=== PATIENT | female | born 1960 | race African-American/Black ===

== ENCOUNTER 2018-10-02 12:38 | Inpatient (IN) | payer MEDICARE, MEDICAID ==
[2018-10-02] VITALS (25 sets, daily range): BP systolic 77–156; BP diastolic 27–128
[~2018-10-02] VITALS: Ht 152.4 cm; Wt 110.2 kg
[2018-10-02] MEDS ORDERED: SODIUM CHLORIDE 0.9% 1,000 ML IV ONE (13:00)
[2018-10-02] MEDS ORDERED: FAMOTIDINE 20MG/2ML VIAL IV STA (13:00)
[2018-10-02] MEDS ORDERED: ONDANSETRON HCL 4MG/2ML INJ IV ONE (13:45)
[2018-10-02] MEDS ORDERED: SODIUM CHLORIDE 0.9% 1000ML BAG (SEPSIS BOLUS) IV ONE (13:45)
[2018-10-02 14:22] LABS: BASOPHILS % 0.5 % (0.0-2.0); EOSINOPHILS % 0.1 % (0.0-5.0); HEMATOCRIT. 31.5 % (36.0-48.0); HEMOGLOBIN. 9.9 g/dL (12.0-16.0); MEAN CORPUSCULAR HEMOGLOBIN 33.5 pg (28.0-32.0); MONOCYTES % 6.4 % (2.0-8.0); PLATELET 372 x1000/uL (130-400); RED BLOOD CELL COUNT 2.94 mill/uL (4.2-5.4); RED CELL DISTRIBUTION WIDTH 14.8 % (11.6-14.6)
[2018-10-02] MEDS ORDERED: LIDOCAINE HCL/PF 1% 2ML VIAL ONE ×2 (14:27→15:48)
[2018-10-02 14:28] LABS: CHLORIDE 119 mEq/L (98-107)
[2018-10-02 14:29] LABS: INR 1.3; PROTHROMBIN TIME 13.2 sec (9.1-11.1)
[2018-10-02] MEDS ORDERED: NOREPINEPHRINE 4 MG in DEXT 5% WATER 246 ML IV ONE ×2 (14:30→16:30)
[2018-10-02 14:32] LABS: ETHANOL BLOOD < 10 mg/dL
[2018-10-02] MEDS ORDERED: LEVOFLOXACIN 500MG PREMIX 100 ML IV ONE (14:45)
[2018-10-02] MEDS ORDERED: PIPERACILLIN/TAZ 3.375G PREMIX 50 ML IV ONE (14:45)
[2018-10-02] MEDS ORDERED: NOREPINEPHRINE 4MG/250ML PMX 250 ML IV PRN (15:30)
[2018-10-02] MEDS ORDERED: SODIUM BICARBONATE 8.4% 1 MEQ/ML 50ML SYR IV ONE (15:45)
[2018-10-02] MEDS ORDERED: KCL 20MEQ/100ML PREMIX 100 ML IV ONE (15:45)
[2018-10-02] MEDS ORDERED: MORPHINE SULFATE 10 MG/ML CPJ IV PRN (16:15)
[2018-10-02] MEDS ORDERED: MAGNESIUM 1 G PREMIX 100 ML IV ONE ×2 (16:15)
[2018-10-02] MEDS ORDERED: NITROGLYCERIN 0.4MG TABLET SL SL PRN (16:15)
[2018-10-02] MEDS ORDERED: IPRATROPIUM/ALBUTEROL 0.5-3(2.5)MG/3ML NEB INH PRN (16:30)
[2018-10-02] MEDS ORDERED: GUAIFENESIN 200MG/10ML SUGAR FREE UDC PO PRN (16:30)
[2018-10-02] MEDS ORDERED: DOCUSATE SODIUM 100MG CAPSULE PO PRN (16:30)
[2018-10-02] MEDS ORDERED: DEXTROSE 50% WATER 50ML SYRINGE IV PRN (16:30)
[2018-10-02] MEDS ORDERED: ONDANSETRON HCL 4MG/2ML INJ IV PRN (16:30)
[2018-10-02] MEDS ORDERED: MAGNESIUM/ALUMINUM HYDROXIDE/SIMETHICONE 30ML UDC PO PRN (16:30)
[2018-10-02] MEDS ORDERED: MVI, ADULT NO.1 10 ML, FOLIC ACID 1 MG, THIAMINE HCL 100 MG in SODIUM CHLORIDE 0.9% 1,0... IV SCH ×4 (17:00)
[2018-10-02 17:02] LABS: FOLIC ACID (FOLATE) SERUM 9.6 ng/mL (>5.38)
[2018-10-02 17:07] LABS: CLARITY URINE CLOUDY (CLEAR); COLOR URINE DARK YELLOW (YELLOW); KETONES URINE TRACE (NEGATIVE); LEUKOCYTE ESTERASE URINE 1+ (NEGATIVE); NITRITE URINE NEGATIVE (NEGATIVE); OCCULT BLOOD URINE 2+ (NEGATIVE); PROTEIN URINE 2+ (NEGATIVE); SPECIFIC GRAVITY URINE 1.022 (1.005-1.030); UROBILINOGEN URINE 0.2 E.U./dL (0.2-1.0)
[2018-10-02 17:16] LABS: *BARBITURATES SCREEN URINE NEGATIVE (NEGATIVE); *BENZODIAZEPINES SCREEN URINE NEGATIVE (NEGATIVE); *COCAINE SCREEN URINE NEGATIVE (NEGATIVE); METHADONE URINE SCREEN NEGATIVE (NEGATIVE); OPIATES URINE SCREEN NEGATIVE (NEGATIVE)
[2018-10-02 17:17] LABS: *AMPHETAMINES SCREEN URINE NEGATIVE (NEGATIVE); CANNABINOID URINE SCREEN NEGATIVE (NEGATIVE); PHENCYCLIDINE URINE SCREEN NEGATIVE (NEGATIVE)
[2018-10-02] MEDS ORDERED: POTASSIUM CHLORIDE 20MEQ TABLET SR PO NR (18:00)
[2018-10-02] MEDS ORDERED: SODIUM BICARBONATE 8.4% 1 MEQ/ML 50ML SYR IV NR (18:00)
[2018-10-02] MEDS: BLOOD SUGAR DIAGNOSTIC STRIP TEST SCH ×2 (18:19→20:52)
[2018-10-02 18:28] LABS: BG CARBOXYHEMOGLOBIN 0.3 % (0.5-1.5); BG DEOXYHEMOGLOBIN 2.2 % (0.0-5.0); BG HCO3 ACT 9.1 mmol/L (22.0-26.0); BG METHEMOGLOBIN 0.5 % (0.0-1.5); BG OXYGEN SATURATION 97.8 % (92.0-98.5); BG PCO2 20.4 mmHg (35.0-45.0); BG PH 7.266 (7.350-7.450); BG PO2 109.9 mmHg (75.0-100.0); BG SAMPLE SITE RIGHT RADIAL; BG VENT MODE ROOM AIR
[2018-10-02] MEDS ORDERED: KCL 20MEQ/100ML PREMIX 100 ML IV SCH (18:30)
[2018-10-02] MEDS ORDERED: DEXT 5%/0.45% NACL 1000ML 1,000 ML IV SCH (18:30)
[2018-10-02] MEDS: INSULIN LISPRO 100 UNITS/ML SUBCUT SCH ×2 (18:36→20:53)
[2018-10-02] MEDS: NOREPINEPHRINE 4 MG in DEXT 5% WATER 246 ML IV PRN ×2 (19:42→22:42)
[2018-10-02] MEDS ORDERED: CEFTRIAXONE 1 G PREMIX 50 ML IV SCH (20:00)
[2018-10-02] MEDS: ASCORBIC ACID 500 MG TABLET PO SCH (20:52)
[2018-10-02] MEDS: CITRIC ACID/SODIUM CITRATE SOLN 30ML UDC PO SCH (20:52)
[2018-10-02] MEDS: ZOLPIDEM TARTRATE 5MG TABLET PO PRN (21:59)
[2018-10-02] MEDS: SODIUM BICARBONATE 100 MEQ in DEXTROSE 5% WATER 900 ML IV SCH (22:42)
[2018-10-03] VITALS (100 sets, daily range): BP systolic 50–150; BP diastolic 23–121
[2018-10-03] MEDS ORDERED: PANT40TA4 MT (00:24)
[2018-10-03] MEDS ORDERED: ASPI-1158 MT (00:24)
[2018-10-03] MEDS ORDERED: IBUP-2030 PO (00:25)
[2018-10-03] MEDS ORDERED: EMPA1TAB24 PO (00:25)
[2018-10-03] MEDS ORDERED: ATOR40TA70 MT (00:25)
[2018-10-03] MEDS ORDERED: LOSA1TAB34 MT (00:25)
[2018-10-03] MEDS: NOREPINEPHRINE 16 MG in DEXT 5% WATER 484 ML IV PRN ×2 (03:15→15:55)
[2018-10-03 05:18] LABS: BASOPHILS % 1.6 % (0.0-2.0); EOSINOPHILS % 0.4 % (0.0-5.0); HEMOGLOBIN. 9.4 g/dL (12.0-16.0); LYMPHOCYTES % 28.3 % (20.0-50.0); MEAN CORPUSCULAR HEMOGLOBIN 33.3 pg (28.0-32.0); NEUTROPHILS % 59.7 % (40.0-76.0); PLATELET 374 x1000/uL (130-400); RED BLOOD CELL COUNT 2.82 mill/uL (4.2-5.4); RED CELL DISTRIBUTION WIDTH 14.5 % (11.6-14.6)
[2018-10-03 05:31] LABS: PHOSPHORUS 2.3 mg/dL (2.5-4.9)
[2018-10-03] MEDS ORDERED: KCL 20MEQ/100ML PREMIX 100 ML IV ONE ×2 (07:00)
[2018-10-03] MEDS: BLOOD SUGAR DIAGNOSTIC STRIP TEST SCH ×4 (07:50→21:27)
[2018-10-03] MEDS ORDERED: POTASSIUM CHLORIDE INJ 40 MEQ in DEXT 5% WATER 250 ML IV NR (08:00)
[2018-10-03] MEDS ORDERED: MAGNESIUM 4 G PREMIX 100 ML IV NR (08:30)
[2018-10-03] MEDS: ZINC SULFATE 220 MG ( 50 ) CAPSULE PO SCH (08:38)
[2018-10-03] MEDS: ASCORBIC ACID 500 MG TABLET PO SCH ×2 (08:38→21:09)
[2018-10-03] MEDS: CITRIC ACID/SODIUM CITRATE SOLN 30ML UDC PO SCH ×3 (08:38→18:20)
[2018-10-03] MEDS: PANTOPRAZOLE SODIUM 40 MG/VIAL IV SCH (08:38)
[2018-10-03] MEDS: INSULIN LISPRO 100 UNITS/ML SUBCUT SCH ×4 (08:40→21:34)
[2018-10-03] MEDS ORDERED: POTASSIUM PHOS,M-BASIC-D-BASIC 30 MMOL in DEXT 5% WATER 500 ML IV ONE (09:00)
[2018-10-03 12:19] LABS: KETONES URINE NEGATIVE (NEGATIVE); LEUKOCYTE ESTERASE URINE 1+ (NEGATIVE); NITRITE URINE NEGATIVE (NEGATIVE); OCCULT BLOOD URINE 3+ (NEGATIVE); PROTEIN URINE 1+ (NEGATIVE); UROBILINOGEN URINE 0.2 E.U./dL (0.2-1.0)
[2018-10-03 12:24] LABS: CLARITY URINE CLOUDY (CLEAR); COLOR URINE BLOODY (YELLOW)
[2018-10-03] MEDS: SODIUM BICARBONATE 100 MEQ in DEXTROSE 5% WATER 900 ML IV SCH ×2 (13:33→21:02)
[2018-10-03] MEDS: POTASSIUM CHLORIDE 20MEQ TABLET SR PO NR ×2 (13:37→14:24)
[2018-10-03] MEDS ORDERED: POTASSIUM CHLORIDE 20MEQ/PACKET PO NR (14:30)
[2018-10-03] MEDS ORDERED: POTASSIUM CHLORIDE 20MEQ/PACKET PO ONE ×2 (19:15→21:30)
[2018-10-03] MEDS: CEFTRIAXONE 1 G PREMIX 50 ML IV SCH (19:29)
[2018-10-03] MEDS ORDERED: KCL 20MEQ/100ML PREMIX 100 ML IV NR (20:30)
[2018-10-03] MEDS ORDERED: POTASSIUM CHLORIDE INJ 40 MEQ in DEXT 5% WATER 250 ML IV ONE (21:00)
[2018-10-03] MEDS: TRAMADOL 50MG TABLET PO PRN (21:10)
[2018-10-04] VITALS (98 sets, daily range): BP systolic 50–147; BP diastolic 24–108
[2018-10-04] MEDS: ZOLPIDEM TARTRATE 5MG TABLET PO PRN (01:36)
[2018-10-04] MEDS: NOREPINEPHRINE 16 MG in DEXT 5% WATER 484 ML IV PRN (03:47)
[2018-10-04 05:26] LABS: BASOPHILS % 0.7 % (0.0-2.0); EOSINOPHILS % 0.7 % (0.0-5.0); HEMATOCRIT. 31.3 % (36.0-48.0); HEMOGLOBIN. 10.1 g/dL (12.0-16.0); LYMPHOCYTES % 27.3 % (20.0-50.0); MEAN CORPUSCULAR VOLUME 102.9 fL (81.0-99.0); MEAN PLATELET VOLUME 10.2 fl (7.4-10.4); MONOCYTES % 8.5 % (2.0-8.0); NEUTROPHILS % 62.8 % (40.0-76.0); PLATELET 307 x1000/uL (130-400); RED BLOOD CELL COUNT 3.04 mill/uL (4.2-5.4); RED CELL DISTRIBUTION WIDTH 14.5 % (11.6-14.6)
[2018-10-04 05:33] LABS: CHLORIDE 105 mEq/L (98-107)
[2018-10-04 05:46] LABS: CREATINE KINASE 51 IU/L (26-192); PHOSPHORUS 1.9 mg/dL (2.5-4.9)
[2018-10-04] MEDS: BLOOD SUGAR DIAGNOSTIC STRIP TEST SCH ×4 (07:54→20:50)
[2018-10-04] MEDS: ASCORBIC ACID 500 MG TABLET PO SCH ×2 (08:13→20:03)
[2018-10-04] MEDS: PANTOPRAZOLE SODIUM 40 MG/VIAL IV SCH (08:13)
[2018-10-04] MEDS: ZINC SULFATE 220 MG ( 50 ) CAPSULE PO SCH (08:13)
[2018-10-04] MEDS: POTASSIUM CHLORIDE 20MEQ/PACKET PO SCH (08:13)
[2018-10-04] MEDS: INSULIN LISPRO 100 UNITS/ML SUBCUT SCH ×4 (08:14→20:50)
[2018-10-04] MEDS ORDERED: POTASSIUM CHLORIDE 20MEQ TABLET SR PO SCH (09:00)
[2018-10-04] MEDS: TRAMADOL 50MG TABLET PO PRN (09:17)
[2018-10-04] MEDS: SODIUM BICARBONATE 100 MEQ in DEXTROSE 5% WATER 900 ML IV SCH ×2 (09:17→17:52)
[2018-10-04] MEDS ORDERED: SODIUM PHOS,M-BASIC-D-BASIC 20 MM in DEXT 5% WATER 243.3333 ML IV SCH (11:00)
[2018-10-04] MEDS: ACETAMINOPHEN 325MG TABLET PO PRN ×2 (11:02→17:51)
[2018-10-04] MEDS: INSULIN GLARGINE UD 100 UNITS/ML SYR SUBCUT SCH (12:35)
[2018-10-04] MEDS ORDERED: LEVOFLOXACIN 250MG PREMIX 50 ML IV SCH ×2 (15:00→16:00)
[2018-10-04] MEDS: NOREPINEPHRINE 8 MG in DEXT 5% WATER 242 ML IV PRN (17:51)
[2018-10-04] MEDS: CEFTRIAXONE 1 G PREMIX 50 ML IV SCH (19:58)
[2018-10-04] MEDS: DIPHENHYDRAMINE 50MG/ML VIAL IV PRN (20:03)
[2018-10-05] VITALS (90 sets, daily range): BP systolic 48–139; BP diastolic 17–115
[2018-10-05] MEDS: ZOLPIDEM TARTRATE 5MG TABLET PO PRN ×2 (00:20→21:02)
[2018-10-05] MEDS: TRAMADOL 50MG TABLET PO PRN ×2 (04:48→14:25)
[2018-10-05 05:45] LABS: BASOPHILS % 0.2 % (0.0-2.0); EOSINOPHILS % 1.6 % (0.0-5.0); HEMOGLOBIN. 9.4 g/dL (12.0-16.0); LYMPHOCYTES % 28.5 % (20.0-50.0); MEAN CORPUSCULAR HEMOGLOBIN 33.1 pg (28.0-32.0); MEAN CORPUSCULAR VOLUME 102.6 fL (81.0-99.0); MEAN PLATELET VOLUME 10.5 fl (7.4-10.4); MONOCYTES % 8.5 % (2.0-8.0); NEUTROPHILS % 61.2 % (40.0-76.0); PLATELET 237 x1000/uL (130-400); RED BLOOD CELL COUNT 2.82 mill/uL (4.2-5.4); RED CELL DISTRIBUTION WIDTH 14.5 % (11.6-14.6)
[2018-10-05 05:58] LABS: CHLORIDE 101 mEq/L (98-107)
[2018-10-05 06:11] LABS: PHOSPHORUS 2.6 mg/dL (2.5-4.9)
[2018-10-05] MEDS: SODIUM BICARBONATE 100 MEQ in DEXTROSE 5% WATER 900 ML IV SCH (06:40)
[2018-10-05] MEDS: BLOOD SUGAR DIAGNOSTIC STRIP TEST SCH ×4 (08:11→21:02)
[2018-10-05] MEDS: PANTOPRAZOLE SODIUM 40 MG/VIAL IV SCH (08:28)
[2018-10-05] MEDS: POTASSIUM CHLORIDE 20MEQ/PACKET PO SCH (08:28)
[2018-10-05] MEDS: ASCORBIC ACID 500 MG TABLET PO SCH ×2 (08:28→21:02)
[2018-10-05] MEDS: INSULIN LISPRO 100 UNITS/ML SUBCUT SCH ×4 (08:29→21:00)
[2018-10-05] MEDS: ZINC SULFATE 220 MG ( 50 ) CAPSULE PO SCH (08:29)
[2018-10-05] MEDS ORDERED: MEDICATION NOT ON FORMULARY EA XX SCH (08:30)
[2018-10-05] MEDS ORDERED: MAGNESIUM 2 G PREMIX 50 ML IV SCH (09:00)
[2018-10-05] MEDS: POTASSIUM CHLORIDE IV SCH (09:53)
[2018-10-05] MEDS: SODIUM CHLORIDE 0.9% IV SCH (09:53)
[2018-10-05] MEDS: INSULIN GLARGINE UD 100 UNITS/ML SYR SUBCUT SCH (09:54)
[2018-10-05] MEDS: NOREPINEPHRINE 8 MG in DEXT 5% WATER 242 ML IV PRN (10:05)
[2018-10-05] MEDS: DIPHENHYDRAMINE 50MG/ML VIAL IV PRN ×3 (10:13→21:02)
[2018-10-05] MEDS ORDERED: SODIUM CHLORIDE 0.9% 1,000 ML IV SCH ×2 (11:35→11:45)
[2018-10-05] MEDS: ALBUMIN HUMAN 25GM/100ML (25%) IV SCH ×2 (12:20→21:39)
[2018-10-05] MEDS: LEVOFLOXACIN 250MG PREMIX 50 ML IV SCH (15:43)
[2018-10-05] MEDS: CEFTRIAXONE 1 G PREMIX 50 ML IV SCH (20:32)
[2018-10-06] VITALS (103 sets, daily range): BP systolic 57–144; BP diastolic 22–94
[2018-10-06] MEDS: POTASSIUM CHLORIDE IV SCH ×2 (00:30→14:15)
[2018-10-06] MEDS: SODIUM CHLORIDE 0.9% IV SCH ×2 (00:30→14:15)
[2018-10-06 05:35] LABS: BASOPHILS % 0.4 % (0.0-2.0); EOSINOPHILS % 1.5 % (0.0-5.0); HEMATOCRIT. 26.4 % (36.0-48.0); HEMOGLOBIN. 8.5 g/dL (12.0-16.0); LYMPHOCYTES % 24.5 % (20.0-50.0); MEAN CORPUSCULAR VOLUME 102.8 fL (81.0-99.0); MEAN PLATELET VOLUME 10.8 fl (7.4-10.4); MONOCYTES % 7.4 % (2.0-8.0); NEUTROPHILS % 66.2 % (40.0-76.0); PLATELET 196 x1000/uL (130-400); RED BLOOD CELL COUNT 2.57 mill/uL (4.2-5.4); RED CELL DISTRIBUTION WIDTH 14.4 % (11.6-14.6)
[2018-10-06] MEDS: ALBUMIN HUMAN 25GM/100ML (25%) IV SCH (05:35)
[2018-10-06 05:40] LABS: CHLORIDE 108 mEq/L (98-107)
[2018-10-06 05:47] LABS: PHOSPHORUS 2.2 mg/dL (2.5-4.9)
[2018-10-06] MEDS: BLOOD SUGAR DIAGNOSTIC STRIP TEST SCH ×4 (08:44→20:20)
[2018-10-06] MEDS: PANTOPRAZOLE SODIUM 40 MG/VIAL IV SCH (09:06)
[2018-10-06] MEDS: ASCORBIC ACID 500 MG TABLET PO SCH ×2 (09:06→20:00)
[2018-10-06] MEDS: ZINC SULFATE 220 MG ( 50 ) CAPSULE PO SCH (09:06)
[2018-10-06] MEDS: POTASSIUM CHLORIDE 20MEQ/PACKET PO SCH (09:06)
[2018-10-06 09:07] LABS: A/G RATIO 0.6 (0.7-1.7); ALBUMIN 2.3 g/dL (2.9-4.4); ALPHA-1-GLOBULIN 0.3 g/dL (0.0-0.4); ALPHA-2-GLOBULIN 0.7 g/dL (0.4-1.0); BETA GLOBULIN 1.2 g/dL (0.7-1.3); GAMMA GLOBULINS 1.5 g/dL (0.4-1.8); GLOBULIN TOTAL 3.7 g/dL (2.2-3.9); M-SPIKE Not Observed g/dL (Not Observed)
[2018-10-06] MEDS: INSULIN LISPRO 100 UNITS/ML SUBCUT SCH ×4 (09:07→20:20)
[2018-10-06] MEDS: INSULIN GLARGINE UD 100 UNITS/ML SYR SUBCUT SCH (09:08)
[2018-10-06] MEDS: TRAMADOL 50MG TABLET PO PRN (09:20)
[2018-10-06] MEDS: POTASSIUM-SODIUM PHOSPHATE POWDER PACKET PO SCH ×2 (09:21→15:43)
[2018-10-06] MEDS ORDERED: MAGNESIUM 2 G PREMIX 50 ML IV SCH (11:00)
[2018-10-06] MEDS: HYDROCORTISONE SOD SUCCINATE 100 MG/2 ML VIAL IV SCH ×2 (14:14→20:00)
[2018-10-06] MEDS: NOREPINEPHRINE 8 MG in DEXT 5% WATER 242 ML IV PRN (14:15)
[2018-10-06] MEDS: DIPHENHYDRAMINE 50MG/ML VIAL IV PRN (14:28)
[2018-10-06] MEDS: LEVOFLOXACIN 250MG PREMIX 50 ML IV SCH (15:43)
[2018-10-06] MEDS: CEFTRIAXONE 1 G PREMIX 50 ML IV SCH (20:00)
[2018-10-07] VITALS (98 sets, daily range): BP systolic 49–188; BP diastolic 21–105
[2018-10-07] MEDS: DIPHENHYDRAMINE 50MG/ML VIAL IV PRN (03:45)
[2018-10-07] MEDS: SODIUM CHLORIDE 0.9% IV SCH (03:52)
[2018-10-07] MEDS: POTASSIUM CHLORIDE IV SCH (03:52)
[2018-10-07 05:55] LABS: CHLORIDE 113 mEq/L (98-107)
[2018-10-07 06:02] LABS: BASOPHILS % 0.1 % (0.0-2.0); HEMATOCRIT. 26.2 % (36.0-48.0); HEMOGLOBIN. 8.2 g/dL (12.0-16.0); MEAN CORPUSCULAR HEMOGLOBIN 32.8 pg (28.0-32.0); MEAN CORPUSCULAR VOLUME 104.3 fL (81.0-99.0); MEAN PLATELET VOLUME 10.9 fl (7.4-10.4); MONOCYTES % 2.7 % (2.0-8.0); NEUTROPHILS % 78.2 % (40.0-76.0); PLATELET 193 x1000/uL (130-400); RED BLOOD CELL COUNT 2.51 mill/uL (4.2-5.4); RED CELL DISTRIBUTION WIDTH 14.4 % (11.6-14.6)
[2018-10-07 06:08] LABS: PHOSPHORUS 1.9 mg/dL (2.5-4.9)
[2018-10-07] MEDS: HYDROCORTISONE SOD SUCCINATE 100 MG/2 ML VIAL IV SCH ×3 (07:02→20:20)
[2018-10-07] MEDS: BLOOD SUGAR DIAGNOSTIC STRIP TEST SCH ×4 (07:50→20:42)
[2018-10-07 09:10] LABS: COMPLEMENT C3 135 mg/dL (82-167)
[2018-10-07] MEDS: PANTOPRAZOLE SODIUM 40 MG/VIAL IV SCH (09:25)
[2018-10-07] MEDS: POTASSIUM-SODIUM PHOSPHATE POWDER PACKET PO SCH ×2 (09:25→17:00)
[2018-10-07] MEDS: ZINC SULFATE 220 MG ( 50 ) CAPSULE PO SCH (09:25)
[2018-10-07] MEDS: ASCORBIC ACID 500 MG TABLET PO SCH ×2 (09:25→20:20)
[2018-10-07] MEDS: INSULIN LISPRO 100 UNITS/ML SUBCUT SCH ×4 (09:26→21:01)
[2018-10-07] MEDS ORDERED: MAGNESIUM 4 G PREMIX 100 ML IV NR (10:30)
[2018-10-07] MEDS: SODIUM CHLORIDE 0.45% 1,000 ML IV SCH (10:47)
[2018-10-07] MEDS: POTASSIUM CHLORIDE 20MEQ/PACKET PO SCH (10:47)
[2018-10-07] MEDS: INSULIN GLARGINE UD 100 UNITS/ML SYR SUBCUT SCH (10:48)
[2018-10-07] MEDS: TRAMADOL 50MG TABLET PO PRN (11:44)
[2018-10-07] MEDS ORDERED: SODIUM PHOS,M-BASIC-D-BASIC 20 MM in DEXT 5% WATER 243.3333 ML IV NR (12:00)
[2018-10-07 13:06] LABS: ANTI-MYELOPEROXIDASE AB < 9.0 U/mL (0.0-9.0); ANTI-PROTEINASE 3 ABS < 3.5 U/mL (0.0-3.5)
[2018-10-07] MEDS: LEVOFLOXACIN 250MG PREMIX 50 ML IV SCH (17:55)
[2018-10-07] MEDS: CEFTRIAXONE 1 G PREMIX 50 ML IV SCH (20:20)
[2018-10-08] VITALS (62 sets, daily range): BP systolic 66–154; BP diastolic 37–89
[2018-10-08] MEDS: DIPHENHYDRAMINE 50MG/ML VIAL IV PRN (02:55)
[2018-10-08] MEDS: HYDROCORTISONE SOD SUCCINATE 100 MG/2 ML VIAL IV SCH ×3 (05:10→22:25)
[2018-10-08 05:40] LABS: BASOPHILS % 0.3 % (0.0-2.0); HEMATOCRIT. 25.6 % (36.0-48.0); HEMOGLOBIN. 8.1 g/dL (12.0-16.0); LYMPHOCYTES % 16.5 % (20.0-50.0); MEAN CORPUSCULAR VOLUME 106.5 fL (81.0-99.0); MEAN PLATELET VOLUME 10.9 fl (7.4-10.4); MONOCYTES % 3.3 % (2.0-8.0); NEUTROPHILS % 79.9 % (40.0-76.0); PLATELET 216 x1000/uL (130-400); RED CELL DISTRIBUTION WIDTH 14.6 % (11.6-14.6)
[2018-10-08] MEDS: BLOOD SUGAR DIAGNOSTIC STRIP TEST SCH ×4 (08:45→21:00)
[2018-10-08] MEDS: ZINC SULFATE 220 MG ( 50 ) CAPSULE PO SCH (09:06)
[2018-10-08] MEDS: POTASSIUM-SODIUM PHOSPHATE POWDER PACKET PO SCH ×2 (09:06→17:55)
[2018-10-08] MEDS: PANTOPRAZOLE SODIUM 40 MG/VIAL IV SCH (09:06)
[2018-10-08 09:07] LABS: GLOMERULAR BASEMENT MEMB AB 4 units (0-20)
[2018-10-08] MEDS: ASCORBIC ACID 500 MG TABLET PO SCH ×2 (09:07→22:24)
[2018-10-08] MEDS: POTASSIUM CHLORIDE 20MEQ/PACKET PO SCH (09:07)
[2018-10-08] MEDS: SODIUM CHLORIDE 0.45% 1,000 ML IV SCH (09:08)
[2018-10-08] MEDS: INSULIN LISPRO 100 UNITS/ML SUBCUT SCH ×4 (09:08→22:25)
[2018-10-08] MEDS: INSULIN GLARGINE UD 100 UNITS/ML SYR SUBCUT SCH (09:39)
[2018-10-08] MEDS: ACETAMINOPHEN 325MG TABLET PO PRN ×2 (09:40→23:56)
[2018-10-08 11:18] LABS: CHLORIDE 111 mEq/L (98-107)
[2018-10-08 11:25] LABS: PHOSPHORUS 3.2 mg/dL (2.5-4.9)
[2018-10-08] MEDS: LEVOFLOXACIN 500MG PREMIX 100 ML IV SCH (13:19)
[2018-10-08 15:08] LABS: ATYPICAL P-ANCA <1:20 titer (Neg:<1:20); CYTOPLASMIC C-ANCA <1:20 titer (Neg:<1:20); PERINUCLEAR P-ANCA <1:20 titer (Neg:<1:20)
[2018-10-08] MEDS ORDERED: POTASSIUM CHLORIDE 20MEQ/PACKET PO SCH (19:15)
[2018-10-08] MEDS: CEFTRIAXONE 1 G PREMIX 50 ML IV SCH (20:41)
[2018-10-09] VITALS (12 sets, daily range): BP systolic 92–125; BP diastolic 53–86
[2018-10-09] MEDS: DIPHENHYDRAMINE 50MG/ML VIAL IV PRN ×2 (01:17→23:08)
[2018-10-09] MEDS: SODIUM CHLORIDE 0.45% 1,000 ML IV SCH ×3 (01:25→23:55)
[2018-10-09] MEDS: HYDROCORTISONE SOD SUCCINATE 100 MG/2 ML VIAL IV SCH ×3 (05:50→21:08)
[2018-10-09] MEDS: BLOOD SUGAR DIAGNOSTIC STRIP TEST SCH ×4 (05:51→20:20)
[2018-10-09 06:38] LABS: BASOPHILS % 0.5 % (0.0-2.0); HEMOGLOBIN. 8.2 g/dL (12.0-16.0); LYMPHOCYTES % 17.2 % (20.0-50.0); MEAN CORPUSCULAR HEMOGLOBIN 33.5 pg (28.0-32.0); MEAN CORPUSCULAR VOLUME 105.8 fL (81.0-99.0); MEAN PLATELET VOLUME 10.6 fl (7.4-10.4); MONOCYTES % 4.6 % (2.0-8.0); NEUTROPHILS % 77.7 % (40.0-76.0); PLATELET 242 x1000/uL (130-400); RED BLOOD CELL COUNT 2.46 mill/uL (4.2-5.4); RED CELL DISTRIBUTION WIDTH 14.5 % (11.6-14.6)
[2018-10-09 06:56] LABS: CHLORIDE 112 mEq/L (98-107)
[2018-10-09 07:02] LABS: PHOSPHORUS 3.6 mg/dL (2.5-4.9)
[2018-10-09] MEDS: INSULIN LISPRO 100 UNITS/ML SUBCUT SCH ×4 (07:20→20:30)
[2018-10-09] MEDS: PANTOPRAZOLE SODIUM 40 MG/VIAL IV SCH (07:43)
[2018-10-09] MEDS: POTASSIUM-SODIUM PHOSPHATE POWDER PACKET PO SCH ×2 (07:44→18:21)
[2018-10-09] MEDS: ZINC SULFATE 220 MG ( 50 ) CAPSULE PO SCH (07:44)
[2018-10-09] MEDS: ASCORBIC ACID 500 MG TABLET PO SCH ×2 (07:44→20:30)
[2018-10-09] MEDS ORDERED: NYSTATIN POWDER 15GM TOP SCH (10:45)
[2018-10-09] MEDS: HYDROCODONE/ACETAMINOPHEN 10/325MG TABLET PO PRN ×2 (11:02→18:25)
[2018-10-09] MEDS: INSULIN GLARGINE UD 100 UNITS/ML SYR SUBCUT SCH (11:06)
[2018-10-09 14:44] LABS: CLARITY URINE CLOUDY (CLEAR); COLOR URINE AMBER (YELLOW); KETONES URINE NEGATIVE (NEGATIVE); LEUKOCYTE ESTERASE URINE 1+ (NEGATIVE); NITRITE URINE NEGATIVE (NEGATIVE); OCCULT BLOOD URINE 3+ (NEGATIVE); PROTEIN URINE 2+ (NEGATIVE); SPECIFIC GRAVITY URINE 1.019 (1.005-1.030); UROBILINOGEN URINE 0.2 E.U./dL (0.2-1.0)
[2018-10-09] MEDS: LEVOFLOXACIN 500MG PREMIX 100 ML IV SCH (15:46)
[2018-10-09] MEDS: NYSTATIN POWDER 15GM TOP SCH ×2 (15:47→18:26)
[2018-10-09] MEDS ORDERED: CEFTRIAXONE 1 G PREMIX 50 ML IV SCH (20:00)
[2018-10-09] MEDS ORDERED: MAGNESIUM 2 G PREMIX 50 ML IV SCH (21:00)
[2018-10-10] VITALS (10 sets, daily range): BP systolic 95–128; BP diastolic 37–69
[2018-10-10] MEDS: HYDROCODONE/ACETAMINOPHEN 10/325MG TABLET PO PRN ×3 (00:03→15:08)
[2018-10-10] MEDS: BLOOD SUGAR DIAGNOSTIC STRIP TEST SCH ×2 (05:58→11:10)
[2018-10-10] MEDS: HYDROCORTISONE SOD SUCCINATE 100 MG/2 ML VIAL IV SCH ×2 (06:14→14:42)
[2018-10-10 06:43] LABS: HEMATOCRIT. 27.6 % (36.0-48.0); HEMOGLOBIN. 8.7 g/dL (12.0-16.0); MEAN CORPUSCULAR HEMOGLOBIN 33.1 pg (28.0-32.0); MEAN CORPUSCULAR VOLUME 105.4 fL (81.0-99.0); MEAN PLATELET VOLUME 10.3 fl (7.4-10.4); PLATELET 290 x1000/uL (130-400); RED BLOOD CELL COUNT 2.62 mill/uL (4.2-5.4); RED CELL DISTRIBUTION WIDTH 14.3 % (11.6-14.6)
[2018-10-10 07:16] LABS: PHOSPHORUS 3.8 mg/dL (2.5-4.9)
[2018-10-10] MEDS: INSULIN LISPRO 100 UNITS/ML SUBCUT SCH ×2 (07:20→12:06)
[2018-10-10] MEDS: ZINC SULFATE 220 MG ( 50 ) CAPSULE PO SCH (08:01)
[2018-10-10] MEDS: PANTOPRAZOLE SODIUM 40 MG/VIAL IV SCH (08:01)
[2018-10-10] MEDS: NYSTATIN POWDER 15GM TOP SCH (08:01)
[2018-10-10] MEDS: POTASSIUM-SODIUM PHOSPHATE POWDER PACKET PO SCH (08:01)
[2018-10-10] MEDS: ASCORBIC ACID 500 MG TABLET PO SCH (08:02)
[2018-10-10] MEDS: SODIUM CHLORIDE 0.45% 1,000 ML IV SCH ×2 (08:02→15:57)
[2018-10-10] MEDS: INSULIN GLARGINE UD 100 UNITS/ML SYR SUBCUT SCH (10:17)
[2018-10-10 10:56] LABS: PLATELET ESTIMATE NORMAL
[2018-10-10] MEDS ORDERED: NYSTATIN POWDER 15GM TOP SCH (13:00)
[2018-10-10] MEDS ORDERED: CITRIC ACID/SODIUM CITRATE SOLN 30ML UDC PO SCH (13:30)
[2018-10-10] MEDS ORDERED: LEVOFLOXACIN 250MG PREMIX 50 ML IV SCH (15:00)
== END 2018-10-10 16:59 | DRG 871 ==
LOC: ER 12:46 → CANRESERV 15:42 → ENRESERV 15:42 → EDBEDREQ 15:48 → EDBEDREQSVC 15:48 → EDBEDREQTM 15:48 → CVICU 16:09 → SUPCPDRO 16:12 → EDBEDREQTM 16:13 → EDBEDREQ 16:13 → ENRESERV 17:10 → CANRESERV 17:15 → ENRESERV 17:15 → 3WST 10-08 18:05
PROVIDERS: ADMIT Internal Medicine; ATTEND Internal Medicine
PROC: 02HV33Z Insertion of Infusion Device into Superior Vena Cava, Percutaneous Approach (ICD-10-PCS; principal; 2018-10-02)
PROC: B548ZZA Ultrasonography of Superior Vena Cava, Guidance (ICD-10-PCS; 2018-10-02)
DX: A41.9 Sepsis, unspecified organism (principal); R65.21 Severe sepsis with septic shock; E43 Unspecified severe protein-calorie malnutrition; N17.0 Acute kidney failure with tubular necrosis; I50.41 Acute combined systolic (congestive) and diastolic (congestive) heart failure; E27.40 Unspecified adrenocortical insufficiency; N39.0 Urinary tract infection, site not specified; Z68.42 Body mass index [BMI] 45.0-49.9, adult; E87.6 Hypokalemia; E83.51 Hypocalcemia; D64.9 Anemia, unspecified; E11.9 Type 2 diabetes mellitus without complications; E83.42 Hypomagnesemia; D25.9 Leiomyoma of uterus, unspecified; D63.8 Anemia in other chronic diseases classified elsewhere; E66.9 Obesity, unspecified; E83.39 Other disorders of phosphorus metabolism; E86.0 Dehydration; I11.0 Hypertensive heart disease with heart failure; K76.0 Fatty (change of) liver, not elsewhere classified; M17.0 Bilateral primary osteoarthritis of knee; R29.6 Repeated falls; Z79.4 Long term (current) use of insulin; Z82.49 Family history of ischemic heart disease and other diseases of the circulatory system; Z87.891 Personal history of nicotine dependence; Z83.3 Family history of diabetes mellitus
CPT/HCPCS: 36415; 36569; 36600; 71045; 72170; 73560; 74176; 76700; 76770; 76937; 80048; 80061; 80305; 82375; 82533; 82550; 82607; 82746; 82805; 82962; 83036; 83520; 83540; 83550; 83605; 83735; 83880; 84100; 84134; 84155; 84165; 84484; 86160; 86256; 87493; 93005; 93306; 93970; 96361; 96365; 96366; 96367; 96375; 97162; 97166; 97530; 97535; 99285; A6261; C1725; C9113; G0482; J0696; J1200; J1720; J1815; J1956; J2405; J2543; J3411; J3475; J3480; J3490; J7030; J7050; J7060; J7070; P9047; A4315

== ENCOUNTER 2018-10-10 17:00 | Inpatient (IN) | payer MEDICARE, MEDICAID ==
[~2018-10-10] VITALS: Ht 165.1 cm; Wt 117.9 kg
[2018-10-10 05:30] VITALS: BP 99/60
[~2018-10-10 17:00] MED LIST: ASPI-1158 MT; ATOR40TA70 MT; EMPA1TAB24 PO; IBUP-2030 PO; LOSA1TAB34 MT; PANT40TA4 MT
[2018-10-10] MEDS ORDERED: IPRATROPIUM/ALBUTEROL 0.5-3(2.5)MG/3ML NEB HHN PRN (18:15)
[2018-10-10] MEDS ORDERED: DOCUSATE SODIUM 100MG CAPSULE PO PRN (18:15)
[2018-10-10] MEDS ORDERED: MAGNESIUM/ALUMINUM HYDROXIDE/SIMETHICONE 30ML UDC PO PRN (18:15)
[2018-10-10] MEDS ORDERED: DEXTROSE 50% WATER 50ML SYRINGE IV PRN (18:15)
[2018-10-10] MEDS ORDERED: ACETAMINOPHEN 650MG/20.3ML UDC PO PRN (18:15)
[2018-10-10] MEDS ORDERED: NITROGLYCERIN 0.4MG TABLET SL SL PRN (18:15)
[2018-10-10] MEDS ORDERED: GUAIFENESIN 200MG/10ML SUGAR FREE UDC PO PRN (18:15)
[2018-10-10 20:00] VITALS: BP 92/51
[2018-10-10] MEDS ORDERED: ONDANSETRON 4MG ODT PO PRN (20:43)
[2018-10-10] MEDS: BLOOD SUGAR DIAGNOSTIC STRIP TEST SCH (21:00)
[2018-10-10] MEDS: HYDROCODONE/ACETAMINOPHEN 10/325MG TABLET PO PRN (22:30)
[2018-10-10] MEDS: ASCORBIC ACID 500 MG TABLET PO SCH (22:30)
[2018-10-10] MEDS: SODIUM CHLORIDE 0.45% 1,000 ML IV SCH (22:31)
[2018-10-10] MEDS: CEFTRIAXONE 1 G PREMIX 50 ML IV SCH (22:31)
[2018-10-10] MEDS: HYDROCORTISONE SOD SUCCINATE 100 MG/2 ML VIAL IV SCH (23:15)
[2018-10-10] MEDS: INSULIN LISPRO 100 UNITS/ML SUBCUT SCH (23:16)
[2018-10-11] MEDS: DIPHENHYDRAMINE 25MG CAPSULE PO PRN ×2 (02:18→19:29)
[2018-10-11] MEDS: HYDROCORTISONE SOD SUCCINATE 100 MG/2 ML VIAL IV SCH (06:18)
[2018-10-11] MEDS: PANTOPRAZOLE 40MG DR TABLET PO SCH (06:18)
[2018-10-11] MEDS: SODIUM CHLORIDE 0.45% 1,000 ML IV SCH ×2 (06:19→14:29)
[2018-10-11] MEDS: INSULIN LISPRO 100 UNITS/ML SUBCUT SCH ×4 (06:19→20:53)
[2018-10-11] MEDS: BLOOD SUGAR DIAGNOSTIC STRIP TEST SCH ×4 (06:19→20:53)
[2018-10-11 06:24] LABS: BASOPHILS % 0.6 % (0.0-2.0); EOSINOPHILS % 0.1 % (0.0-5.0); HEMATOCRIT. 25.7 % (36.0-48.0); HEMOGLOBIN. 8.2 g/dL (12.0-16.0); MEAN CORPUSCULAR HEMOGLOBIN 33.8 pg (28.0-32.0); MEAN CORPUSCULAR VOLUME 105.8 fL (81.0-99.0); MEAN PLATELET VOLUME 9.7 fl (7.4-10.4); MONOCYTES % 6.9 % (2.0-8.0); NEUTROPHILS % 67.4 % (40.0-76.0); PLATELET 293 x1000/uL (130-400); RED BLOOD CELL COUNT 2.43 mill/uL (4.2-5.4); RED CELL DISTRIBUTION WIDTH 14.2 % (11.6-14.6)
[2018-10-11 06:31] LABS: CHLORIDE 117 mEq/L (98-107)
[2018-10-11 08:00] VITALS: BP 102/97
[2018-10-11] MEDS: ASCORBIC ACID 500 MG TABLET PO SCH ×2 (09:22→20:50)
[2018-10-11] MEDS: ZINC SULFATE 220 MG ( 50 ) CAPSULE PO SCH (09:22)
[2018-10-11] MEDS: POTASSIUM-SODIUM PHOSPHATE POWDER PACKET PO SCH ×2 (09:22→17:32)
[2018-10-11] MEDS: CITRIC ACID/SODIUM CITRATE SOLN 30ML UDC PO SCH ×3 (09:22→17:32)
[2018-10-11] MEDS: NYSTATIN POWDER 15GM TOP SCH ×3 (09:27→17:33)
[2018-10-11] MEDS: HYDROCODONE/ACETAMINOPHEN 10/325MG TABLET PO PRN ×2 (09:27→16:13)
[2018-10-11] MEDS: INSULIN GLARGINE UD 100 UNITS/ML SYR SUBCUT SCH (10:46)
[2018-10-11] MEDS: NYSTATIN 100,000 UNITS/ML 5ML UDC SSW SCH ×3 (15:25→23:34)
[2018-10-11 20:00] VITALS: BP 95/49
[2018-10-11] MEDS: CEFTRIAXONE 1 G PREMIX 50 ML IV SCH (20:51)
[2018-10-11] MEDS: ALPRAZOLAM 0.5 MG TABLET PO PRN (23:42)
[2018-10-12] MEDS: SODIUM CHLORIDE 0.45% 1,000 ML IV SCH (03:58)
[2018-10-12] MEDS: HYDROCODONE/ACETAMINOPHEN 10/325MG TABLET PO PRN ×3 (05:33→20:20)
[2018-10-12] MEDS: NYSTATIN 100,000 UNITS/ML 5ML UDC SSW SCH ×4 (05:33→23:30)
[2018-10-12] MEDS: BLOOD SUGAR DIAGNOSTIC STRIP TEST SCH ×4 (06:29→20:51)
[2018-10-12] MEDS: PANTOPRAZOLE 40MG DR TABLET PO SCH (06:29)
[2018-10-12 06:32] LABS: BASOPHILS % 0.2 % (0.0-2.0); CHLORIDE 114 mEq/L (98-107); EOSINOPHILS % 0.5 % (0.0-5.0); HEMATOCRIT. 28.3 % (36.0-48.0); HEMOGLOBIN. 8.9 g/dL (12.0-16.0); LYMPHOCYTES % 37.2 % (20.0-50.0); MEAN CORPUSCULAR HEMOGLOBIN 33.4 pg (28.0-32.0); MEAN CORPUSCULAR VOLUME 105.7 fL (81.0-99.0); MEAN PLATELET VOLUME 9.4 fl (7.4-10.4); MONOCYTES % 9.4 % (2.0-8.0); NEUTROPHILS % 52.7 % (40.0-76.0); PLATELET 354 x1000/uL (130-400); RED BLOOD CELL COUNT 2.67 mill/uL (4.2-5.4); RED CELL DISTRIBUTION WIDTH 14.4 % (11.6-14.6)
[2018-10-12 06:43] LABS: PHOSPHORUS 3.7 mg/dL (2.5-4.9); TOTAL IRON BINDING CAPACITY 127 ug/dL (250-450)
[2018-10-12] MEDS: INSULIN LISPRO 100 UNITS/ML SUBCUT SCH ×4 (07:01→20:51)
[2018-10-12 08:00] VITALS: BP 90/53
[2018-10-12] MEDS: ZINC SULFATE 220 MG ( 50 ) CAPSULE PO SCH (09:09)
[2018-10-12] MEDS: ASCORBIC ACID 500 MG TABLET PO SCH ×2 (09:09→20:20)
[2018-10-12] MEDS: NYSTATIN POWDER 15GM TOP SCH ×3 (09:10→18:01)
[2018-10-12] MEDS: CITRIC ACID/SODIUM CITRATE SOLN 30ML UDC PO SCH ×3 (09:10→18:00)
[2018-10-12] MEDS: POTASSIUM-SODIUM PHOSPHATE POWDER PACKET PO SCH ×2 (09:10→18:00)
[2018-10-12] MEDS: DIPHENHYDRAMINE 25MG CAPSULE PO PRN ×2 (09:14→19:44)
[2018-10-12] MEDS ORDERED: POTASSIUM CHLORIDE 20MEQ TABLET SR PO NR (09:30)
[2018-10-12] MEDS ORDERED: MAGNESIUM OXIDE 400MG TABLET PO SCH (09:30)
[2018-10-12] MEDS: INSULIN GLARGINE UD 100 UNITS/ML SYR SUBCUT SCH (10:27)
[2018-10-12] MEDS ORDERED: MAGNESIUM 1 G PREMIX 100 ML IV SCH (11:00)
[2018-10-12] MEDS ORDERED: COSYNTROPIN 0.25MG/ML VIAL IV NR (13:00)
[2018-10-12] MEDS: LOPERAMIDE HCL 2MG CAPSULE PO PRN (16:33)
[2018-10-12 19:33] LABS: HEPATITIS B SURFACE ANTIGEN NEGATIVE
[2018-10-12 19:37] LABS: CLARITY URINE CLOUDY (CLEAR); COLOR URINE YELLOW (YELLOW); KETONES URINE NEGATIVE (NEGATIVE); LEUKOCYTE ESTERASE URINE 3+ (NEGATIVE); NITRITE URINE NEGATIVE (NEGATIVE); OCCULT BLOOD URINE 2+ (NEGATIVE); PH URINE 6.5 (4.5-8.0); PROTEIN URINE 1+ (NEGATIVE); SPECIFIC GRAVITY URINE 1.011 (1.005-1.030); UROBILINOGEN URINE 0.2 E.U./dL (0.2-1.0)
[2018-10-12 20:00] VITALS: BP 104/51
[2018-10-12 20:03] LABS: HEPATITIS A AB IGM NEGATIVE (NEGATIVE)
[2018-10-12] MEDS: ALPRAZOLAM 0.5 MG TABLET PO PRN (23:30)
[2018-10-13] MEDS: DIPHENHYDRAMINE 25MG CAPSULE PO PRN ×3 (04:45→20:57)
[2018-10-13] MEDS: NYSTATIN 100,000 UNITS/ML 5ML UDC SSW SCH ×4 (06:10→23:35)
[2018-10-13] MEDS: BLOOD SUGAR DIAGNOSTIC STRIP TEST SCH ×4 (06:19→21:06)
[2018-10-13] MEDS: INSULIN LISPRO 100 UNITS/ML SUBCUT SCH ×4 (06:28→21:00)
[2018-10-13 07:00] VITALS: BP 90/54
[2018-10-13 07:24] LABS: BASOPHILS % 0.3 % (0.0-2.0); EOSINOPHILS % 1.3 % (0.0-5.0); HEMATOCRIT. 25.6 % (36.0-48.0); LYMPHOCYTES % 30.1 % (20.0-50.0); MEAN CORPUSCULAR HEMOGLOBIN 33.3 pg (28.0-32.0); MEAN CORPUSCULAR VOLUME 106.1 fL (81.0-99.0); MEAN PLATELET VOLUME 9.3 fl (7.4-10.4); MONOCYTES % 9.2 % (2.0-8.0); NEUTROPHILS % 59.1 % (40.0-76.0); PLATELET 277 x1000/uL (130-400); RED BLOOD CELL COUNT 2.41 mill/uL (4.2-5.4); RED CELL DISTRIBUTION WIDTH 14.7 % (11.6-14.6)
[2018-10-13 07:41] LABS: CHLORIDE 119 mEq/L (98-107)
[2018-10-13 07:53] LABS: PHOSPHORUS 3.5 mg/dL (2.5-4.9)
[2018-10-13 08:20] VITALS: BP 101/61
[2018-10-13] MEDS: CITRIC ACID/SODIUM CITRATE SOLN 30ML UDC PO SCH ×4 (08:25→17:25)
[2018-10-13] MEDS: ASCORBIC ACID 500 MG TABLET PO SCH ×3 (08:25→20:57)
[2018-10-13] MEDS: POTASSIUM-SODIUM PHOSPHATE POWDER PACKET PO SCH ×3 (08:25→17:25)
[2018-10-13] MEDS: ZINC SULFATE 220 MG ( 50 ) CAPSULE PO SCH ×2 (08:25→08:40)
[2018-10-13] MEDS: FAMOTIDINE 20MG TABLET PO SCH ×2 (08:25→08:40)
[2018-10-13] MEDS: HYDROCODONE/ACETAMINOPHEN 10/325MG TABLET PO PRN ×3 (08:26→23:36)
[2018-10-13] MEDS: NYSTATIN POWDER 15GM TOP SCH ×3 (08:40→17:25)
[2018-10-13] MEDS: INSULIN GLARGINE UD 100 UNITS/ML SYR SUBCUT SCH (10:04)
[2018-10-13] MEDS ORDERED: POTASSIUM CHLORIDE 20MEQ TABLET SR PO SCH (13:00)
[2018-10-13] MEDS ORDERED: MAGNESIUM 2 G PREMIX 50 ML IV SCH (14:30)
[2018-10-13 20:00] VITALS: BP 96/53
[2018-10-13 23:30] VITALS: BP 112/49
[2018-10-13] MEDS: LOPERAMIDE HCL 2MG CAPSULE PO PRN (23:35)
[2018-10-14] MEDS: ALPRAZOLAM 0.5 MG TABLET PO PRN ×2 (00:09→23:09)
[2018-10-14] MEDS: NYSTATIN 100,000 UNITS/ML 5ML UDC SSW SCH ×3 (06:21→17:11)
[2018-10-14] MEDS: BLOOD SUGAR DIAGNOSTIC STRIP TEST SCH ×4 (06:21→20:59)
[2018-10-14] MEDS: HYDROCODONE/ACETAMINOPHEN 10/325MG TABLET PO PRN ×3 (06:27→21:01)
[2018-10-14] MEDS: INSULIN LISPRO 100 UNITS/ML SUBCUT SCH ×4 (06:28→21:00)
[2018-10-14] MEDS: NYSTATIN POWDER 15GM TOP SCH ×3 (08:14→17:10)
[2018-10-14] MEDS: CITRIC ACID/SODIUM CITRATE SOLN 30ML UDC PO SCH ×3 (08:14→17:11)
[2018-10-14] MEDS: FAMOTIDINE 20MG TABLET PO SCH (08:14)
[2018-10-14] MEDS: ZINC SULFATE 220 MG ( 50 ) CAPSULE PO SCH (08:14)
[2018-10-14] MEDS: POTASSIUM-SODIUM PHOSPHATE POWDER PACKET PO SCH ×2 (08:15→17:11)
[2018-10-14] MEDS: ASCORBIC ACID 500 MG TABLET PO SCH ×2 (08:15→20:59)
[2018-10-14 08:25] VITALS: BP 106/69
[2018-10-14 09:38] LABS: BASOPHILS % 0.4 % (0.0-2.0); EOSINOPHILS % 1.4 % (0.0-5.0); HEMATOCRIT. 24.6 % (36.0-48.0); HEMOGLOBIN. 7.8 g/dL (12.0-16.0); LYMPHOCYTES % 28.4 % (20.0-50.0); MEAN CORPUSCULAR HEMOGLOBIN 33.4 pg (28.0-32.0); MEAN CORPUSCULAR VOLUME 105.2 fL (81.0-99.0); MEAN PLATELET VOLUME 9.1 fl (7.4-10.4); MONOCYTES % 8.3 % (2.0-8.0); NEUTROPHILS % 61.5 % (40.0-76.0); PLATELET 295 x1000/uL (130-400); RED BLOOD CELL COUNT 2.33 mill/uL (4.2-5.4); RED CELL DISTRIBUTION WIDTH 14.8 % (11.6-14.6)
[2018-10-14 09:47] LABS: CHLORIDE 118 mEq/L (98-107)
[2018-10-14] MEDS ORDERED: DEXTROSE 5% WATER 1,000 ML IV SCH (10:15)
[2018-10-14] MEDS ORDERED: POTASSIUM CHLORIDE 20MEQ TABLET SR PO NR (10:30)
[2018-10-14] MEDS: INSULIN GLARGINE UD 100 UNITS/ML SYR SUBCUT SCH (10:37)
[2018-10-14 11:25] VITALS: BP 107/62
[2018-10-14] MEDS ORDERED: MAGNESIUM 2 G PREMIX 50 ML IV SCH (12:00)
[2018-10-14] MEDS: DIPHENHYDRAMINE 25MG CAPSULE PO PRN (17:35)
[2018-10-14 20:00] VITALS: BP 141/57
[2018-10-15] MEDS: NYSTATIN 100,000 UNITS/ML 5ML UDC SSW SCH ×5 (06:00→23:33)
[2018-10-15] MEDS: BLOOD SUGAR DIAGNOSTIC STRIP TEST SCH ×4 (06:11→20:27)
[2018-10-15] MEDS: INSULIN LISPRO 100 UNITS/ML SUBCUT SCH ×4 (06:17→20:27)
[2018-10-15] MEDS: HYDROCODONE/ACETAMINOPHEN 10/325MG TABLET PO PRN ×3 (06:56→20:22)
[2018-10-15 07:16] LABS: BASOPHILS % 0.6 % (0.0-2.0); EOSINOPHILS % 2.1 % (0.0-5.0); HEMATOCRIT. 26.5 % (36.0-48.0); HEMOGLOBIN. 8.2 g/dL (12.0-16.0); LYMPHOCYTES % 34.3 % (20.0-50.0); MEAN CORPUSCULAR HEMOGLOBIN 32.7 pg (28.0-32.0); MEAN CORPUSCULAR VOLUME 105.7 fL (81.0-99.0); MEAN PLATELET VOLUME 9.2 fl (7.4-10.4); MONOCYTES % 8.5 % (2.0-8.0); NEUTROPHILS % 54.5 % (40.0-76.0); PLATELET 288 x1000/uL (130-400); RED CELL DISTRIBUTION WIDTH 14.7 % (11.6-14.6)
[2018-10-15 07:27] LABS: CHLORIDE 118 mEq/L (98-107)
[2018-10-15 07:34] LABS: PHOSPHORUS 2.9 mg/dL (2.5-4.9)
[2018-10-15 08:23] VITALS: BP 99/57
[2018-10-15] MEDS: ZINC SULFATE 220 MG ( 50 ) CAPSULE PO SCH (08:38)
[2018-10-15] MEDS: POTASSIUM-SODIUM PHOSPHATE POWDER PACKET PO SCH ×2 (08:38→17:02)
[2018-10-15] MEDS: CITRIC ACID/SODIUM CITRATE SOLN 30ML UDC PO SCH ×3 (08:38→17:02)
[2018-10-15] MEDS: DIPHENHYDRAMINE 25MG CAPSULE PO PRN ×2 (08:38→21:24)
[2018-10-15] MEDS: ASCORBIC ACID 500 MG TABLET PO SCH ×2 (08:38→20:22)
[2018-10-15] MEDS: FAMOTIDINE 20MG TABLET PO SCH (08:38)
[2018-10-15] MEDS: NYSTATIN POWDER 15GM TOP SCH ×3 (08:58→17:05)
[2018-10-15] MEDS ORDERED: MAGNESIUM 2 G PREMIX 50 ML IV SCH (10:00)
[2018-10-15] MEDS: INSULIN GLARGINE UD 100 UNITS/ML SYR SUBCUT SCH (10:47)
[2018-10-15] MEDS: FLUCONAZOLE 100MG TABLET PO SCH (14:09)
[2018-10-15] MEDS: DOCUSATE SODIUM 100MG CAPSULE PO SCH ×2 (14:09→17:02)
[2018-10-15] MEDS ORDERED: FUROSEMIDE 20MG/2ML VIAL IVP NR (16:00)
[2018-10-15] MEDS ORDERED: BISACODYL 10MG SUPP PR NR (16:00)
[2018-10-15] MEDS ORDERED: LACTULOSE 20G/30ML UDC PO SCH (17:00)
[2018-10-15 20:00] VITALS: BP 122/81
[2018-10-15] MEDS: ALPRAZOLAM 0.5 MG TABLET PO PRN (23:41)
[2018-10-16] MEDS: NYSTATIN 100,000 UNITS/ML 5ML UDC SSW SCH (05:18)
[2018-10-16] MEDS: BLOOD SUGAR DIAGNOSTIC STRIP TEST SCH ×4 (06:21→20:26)
[2018-10-16] MEDS: INSULIN LISPRO 100 UNITS/ML SUBCUT SCH ×4 (06:21→20:26)
[2018-10-16 06:23] LABS: BASOPHILS % 0.3 % (0.0-2.0); EOSINOPHILS % 1.9 % (0.0-5.0); HEMATOCRIT. 23.5 % (36.0-48.0); HEMOGLOBIN. 7.4 g/dL (12.0-16.0); LYMPHOCYTES % 28.5 % (20.0-50.0); MEAN CORPUSCULAR VOLUME 104.7 fL (81.0-99.0); MEAN PLATELET VOLUME 9.3 fl (7.4-10.4); MONOCYTES % 10.2 % (2.0-8.0); NEUTROPHILS % 59.1 % (40.0-76.0); PLATELET 270 x1000/uL (130-400); RED BLOOD CELL COUNT 2.25 mill/uL (4.2-5.4); RED CELL DISTRIBUTION WIDTH 15.4 % (11.6-14.6)
[2018-10-16 06:41] LABS: CHLORIDE 115 mEq/L (98-107)
[2018-10-16 06:50] LABS: PHOSPHORUS 2.8 mg/dL (2.5-4.9)
[2018-10-16 06:52] LABS: CREATINE KINASE 14 IU/L (26-192)
[2018-10-16 08:00] VITALS: BP 100/58
[2018-10-16] MEDS: FAMOTIDINE 20MG TABLET PO SCH (08:19)
[2018-10-16] MEDS: POTASSIUM-SODIUM PHOSPHATE POWDER PACKET PO SCH ×2 (08:19→17:23)
[2018-10-16] MEDS: CITRIC ACID/SODIUM CITRATE SOLN 30ML UDC PO SCH (08:19)
[2018-10-16] MEDS: ZINC SULFATE 220 MG ( 50 ) CAPSULE PO SCH (08:19)
[2018-10-16] MEDS: DOCUSATE SODIUM 100MG CAPSULE PO SCH ×2 (08:19→17:24)
[2018-10-16] MEDS: FLUCONAZOLE 100MG TABLET PO SCH (08:19)
[2018-10-16] MEDS: ASCORBIC ACID 500 MG TABLET PO SCH ×2 (08:19→20:21)
[2018-10-16] MEDS: NYSTATIN POWDER 15GM TOP SCH ×4 (08:19→17:23)
[2018-10-16] MEDS: HYDROCODONE/ACETAMINOPHEN 10/325MG TABLET PO PRN ×3 (08:20→20:21)
[2018-10-16] MEDS: INSULIN GLARGINE UD 100 UNITS/ML SYR SUBCUT SCH (10:24)
[2018-10-16] MEDS ORDERED: FUROSEMIDE 20MG/2ML VIAL IVP NR (13:15)
[2018-10-16] MEDS: MAGNESIUM 1 G PREMIX 100 ML IV SCH ×2 (13:23→13:56)
[2018-10-16] MEDS ORDERED: POTASSIUM CHLORIDE 20MEQ/PACKET PO NR (14:00)
[2018-10-16 20:00] VITALS: BP 96/61
[2018-10-16] MEDS: MAGNESIUM OXIDE 400MG TABLET PO SCH (20:22)
[2018-10-16] MEDS: DIPHENHYDRAMINE 25MG CAPSULE PO PRN (22:54)
[2018-10-17] MEDS: ALPRAZOLAM 0.5 MG TABLET PO PRN (00:27)
[2018-10-17] MEDS: BLOOD SUGAR DIAGNOSTIC STRIP TEST SCH ×4 (06:36→20:59)
[2018-10-17] MEDS: INSULIN LISPRO 100 UNITS/ML SUBCUT SCH ×4 (07:52→21:00)
[2018-10-17 08:00] VITALS: BP 105/66
[2018-10-17] MEDS: HYDROCODONE/ACETAMINOPHEN 10/325MG TABLET PO PRN ×2 (09:08→20:59)
[2018-10-17] MEDS: FAMOTIDINE 20MG TABLET PO SCH (09:08)
[2018-10-17] MEDS: ZINC SULFATE 220 MG ( 50 ) CAPSULE PO SCH (09:08)
[2018-10-17] MEDS: DOCUSATE SODIUM 100MG CAPSULE PO SCH ×2 (09:08→17:28)
[2018-10-17] MEDS: FLUCONAZOLE 100MG TABLET PO SCH (09:09)
[2018-10-17] MEDS: POTASSIUM CHLORIDE 20MEQ TABLET SR PO SCH (09:09)
[2018-10-17] MEDS: POTASSIUM-SODIUM PHOSPHATE POWDER PACKET PO SCH ×2 (09:09→17:28)
[2018-10-17] MEDS: NYSTATIN POWDER 15GM TOP SCH ×3 (09:09→17:32)
[2018-10-17] MEDS: ASCORBIC ACID 500 MG TABLET PO SCH ×2 (09:09→20:59)
[2018-10-17] MEDS: MAGNESIUM OXIDE 400MG TABLET PO SCH ×2 (09:12→20:59)
[2018-10-17 10:22] LABS: BASOPHILS % 0.7 % (0.0-2.0); EOSINOPHILS % 1.8 % (0.0-5.0); HEMOGLOBIN. 7.6 g/dL (12.0-16.0); LYMPHOCYTES % 29.3 % (20.0-50.0); MEAN CORPUSCULAR HEMOGLOBIN 33.1 pg (28.0-32.0); MEAN CORPUSCULAR VOLUME 105.1 fL (81.0-99.0); MEAN PLATELET VOLUME 9.5 fl (7.4-10.4); MONOCYTES % 9.8 % (2.0-8.0); NEUTROPHILS % 58.4 % (40.0-76.0); PLATELET 294 x1000/uL (130-400); RED BLOOD CELL COUNT 2.29 mill/uL (4.2-5.4); RED CELL DISTRIBUTION WIDTH 15.2 % (11.6-14.6)
[2018-10-17] MEDS: INSULIN GLARGINE UD 100 UNITS/ML SYR SUBCUT SCH (10:34)
[2018-10-17 10:36] LABS: CHLORIDE 114 mEq/L (98-107)
[2018-10-17 10:46] LABS: PHOSPHORUS 2.4 mg/dL (2.5-4.9)
[2018-10-17] MEDS ORDERED: FUROSEMIDE 20MG/2ML VIAL IVP ONE (13:00)
[2018-10-17] MEDS ORDERED: MAGNESIUM 2 G PREMIX 50 ML IV SCH (13:30)
[2018-10-17] MEDS: FUROSEMIDE 40MG/4ML VIAL IVP SCH (14:15)
[2018-10-17] MEDS ORDERED: POTASSIUM-SODIUM PHOSPHATE POWDER PACKET PO NR (16:15)
[2018-10-17 19:11] LABS: 25-HYDROXY VITAMIN D3 3.5 ng/mL (.)
[2018-10-17 20:00] VITALS: BP 98/47
[2018-10-17 21:00] VITALS: BP 116/66
[2018-10-17] MEDS: DIPHENHYDRAMINE 25MG CAPSULE PO PRN (23:33)
[2018-10-18] MEDS: ALPRAZOLAM 0.5 MG TABLET PO PRN (01:08)
[2018-10-18] MEDS: BLOOD SUGAR DIAGNOSTIC STRIP TEST SCH ×4 (07:22→21:00)
[2018-10-18] MEDS: INSULIN LISPRO 100 UNITS/ML SUBCUT SCH ×4 (07:22→21:00)
[2018-10-18] MEDS: NYSTATIN POWDER 15GM TOP SCH ×3 (09:12→17:45)
[2018-10-18] MEDS: POTASSIUM-SODIUM PHOSPHATE POWDER PACKET PO SCH ×2 (09:12→17:44)
[2018-10-18] MEDS: POTASSIUM CHLORIDE 20MEQ TABLET SR PO SCH (09:12)
[2018-10-18] MEDS: HYDROCODONE/ACETAMINOPHEN 10/325MG TABLET PO PRN ×3 (09:13→22:32)
[2018-10-18] MEDS: MAGNESIUM OXIDE 400MG TABLET PO SCH (09:14)
[2018-10-18] MEDS: ZINC SULFATE 220 MG ( 50 ) CAPSULE PO SCH (09:14)
[2018-10-18] MEDS: ASCORBIC ACID 500 MG TABLET PO SCH ×2 (09:14→22:32)
[2018-10-18] MEDS: FAMOTIDINE 20MG TABLET PO SCH (09:14)
[2018-10-18] MEDS: FUROSEMIDE 40MG/4ML VIAL IVP SCH (09:14)
[2018-10-18] MEDS: FLUCONAZOLE 100MG TABLET PO SCH (09:14)
[2018-10-18] MEDS: DOCUSATE SODIUM 100MG CAPSULE PO SCH ×2 (09:14→17:44)
[2018-10-18 09:24] LABS: CHLORIDE 115 mEq/L (98-107)
[2018-10-18 09:29] LABS: PHOSPHORUS 2.7 mg/dL (2.5-4.9)
[2018-10-18] MEDS: INSULIN GLARGINE UD 100 UNITS/ML SYR SUBCUT SCH (09:34)
[2018-10-18 12:07] LABS: BASOPHILS % 1.2 % (0.0-2.0); EOSINOPHILS % 1.4 % (0.0-5.0); HEMATOCRIT. 25.1 % (36.0-48.0); HEMOGLOBIN. 7.9 g/dL (12.0-16.0); LYMPHOCYTES % 29.3 % (20.0-50.0); MEAN CORPUSCULAR HEMOGLOBIN 33.1 pg (28.0-32.0); MEAN CORPUSCULAR VOLUME 104.9 fL (81.0-99.0); MEAN PLATELET VOLUME 9.3 fl (7.4-10.4); MONOCYTES % 8.8 % (2.0-8.0); NEUTROPHILS % 59.3 % (40.0-76.0); PLATELET 318 x1000/uL (130-400); RED BLOOD CELL COUNT 2.39 mill/uL (4.2-5.4); RED CELL DISTRIBUTION WIDTH 15.3 % (11.6-14.6)
[2018-10-18] MEDS ORDERED: POTASSIUM CHLORIDE 20MEQ TABLET SR PO NR (18:00)
[2018-10-18] MEDS ORDERED: MAGNESIUM 2 G PREMIX 50 ML IV NR (19:00)
[2018-10-18 20:00] VITALS: BP 100/60
[2018-10-18] MEDS: DIPHENHYDRAMINE 25MG CAPSULE PO PRN (23:49)
[2018-10-19] MEDS: BLOOD SUGAR DIAGNOSTIC STRIP TEST SCH ×4 (05:54→21:21)
[2018-10-19] MEDS: HYDROCODONE/ACETAMINOPHEN 10/325MG TABLET PO PRN ×3 (05:54→21:20)
[2018-10-19] MEDS: INSULIN LISPRO 100 UNITS/ML SUBCUT SCH ×4 (05:55→21:21)
[2018-10-19 07:26] LABS: CHLORIDE 115 mEq/L (98-107)
[2018-10-19 07:27] LABS: HEMATOCRIT. 27.5 % (36.0-48.0); HEMOGLOBIN. 8.7 g/dL (12.0-16.0); MEAN CORPUSCULAR HEMOGLOBIN 33.4 pg (28.0-32.0); MEAN CORPUSCULAR VOLUME 105.2 fL (81.0-99.0); MEAN PLATELET VOLUME 9.9 fl (7.4-10.4); PLATELET 266 x1000/uL (130-400); RED BLOOD CELL COUNT 2.61 mill/uL (4.2-5.4); RED CELL DISTRIBUTION WIDTH 15.6 % (11.6-14.6)
[2018-10-19 07:31] LABS: PHOSPHORUS 2.9 mg/dL (2.5-4.9)
[2018-10-19 08:09] VITALS: BP 114/60
[2018-10-19] MEDS: POTASSIUM CHLORIDE 20MEQ TABLET SR PO SCH (09:05)
[2018-10-19] MEDS: POTASSIUM-SODIUM PHOSPHATE POWDER PACKET PO SCH ×2 (09:05→16:18)
[2018-10-19] MEDS: ASCORBIC ACID 500 MG TABLET PO SCH ×2 (09:05→21:20)
[2018-10-19] MEDS: FUROSEMIDE 40MG/4ML VIAL IVP SCH ×2 (09:05→17:45)
[2018-10-19] MEDS: DOCUSATE SODIUM 100MG CAPSULE PO SCH ×2 (09:05→16:18)
[2018-10-19] MEDS: FAMOTIDINE 20MG TABLET PO SCH (09:05)
[2018-10-19] MEDS: ZINC SULFATE 220 MG ( 50 ) CAPSULE PO SCH (09:05)
[2018-10-19] MEDS: NYSTATIN POWDER 15GM TOP SCH ×3 (09:06→16:20)
[2018-10-19] MEDS: FLUCONAZOLE 100MG TABLET PO SCH (09:07)
[2018-10-19] MEDS: INSULIN GLARGINE UD 100 UNITS/ML SYR SUBCUT SCH (11:32)
[2018-10-19 14:15] LABS: PLATELET ESTIMATE NORMAL
[2018-10-19] MEDS ORDERED: MAGNESIUM 2 G PREMIX 50 ML IV NR (18:30)
[2018-10-19 20:00] VITALS: BP 129/76
[2018-10-19] MEDS: DIPHENHYDRAMINE 25MG CAPSULE PO PRN (23:37)
[2018-10-20] MEDS ORDERED: ALPRAZOLAM 0.5 MG TABLET PO PRN (01:45)
[2018-10-20] MEDS: BLOOD SUGAR DIAGNOSTIC STRIP TEST SCH ×2 (06:02→12:03)
[2018-10-20] MEDS: FUROSEMIDE 40MG/4ML VIAL IVP SCH (06:02)
[2018-10-20] MEDS: HYDROCODONE/ACETAMINOPHEN 10/325MG TABLET PO PRN (06:37)
[2018-10-20 07:12] LABS: HEMATOCRIT. 22.2 % (36.0-48.0); MEAN CORPUSCULAR HEMOGLOBIN 33.1 pg (28.0-32.0); MEAN CORPUSCULAR VOLUME 105.4 fL (81.0-99.0); MEAN PLATELET VOLUME 9.5 fl (7.4-10.4); PLATELET 292 x1000/uL (130-400); RED CELL DISTRIBUTION WIDTH 15.7 % (11.6-14.6)
[2018-10-20 08:00] VITALS: BP 98/59
[2018-10-20 08:13] LABS: CHLORIDE 116 mEq/L (98-107)
[2018-10-20 08:29] LABS: PHOSPHORUS 3.4 mg/dL (2.5-4.9)
[2018-10-20] MEDS: INSULIN LISPRO 100 UNITS/ML SUBCUT SCH (09:00)
[2018-10-20] MEDS: FAMOTIDINE 20MG TABLET PO SCH (10:01)
[2018-10-20] MEDS: ZINC SULFATE 220 MG ( 50 ) CAPSULE PO SCH (10:01)
[2018-10-20] MEDS: POTASSIUM CHLORIDE 20MEQ TABLET SR PO SCH (10:01)
[2018-10-20] MEDS: DOCUSATE SODIUM 100MG CAPSULE PO SCH (10:01)
[2018-10-20] MEDS: POTASSIUM-SODIUM PHOSPHATE POWDER PACKET PO SCH (10:01)
[2018-10-20] MEDS: ASCORBIC ACID 500 MG TABLET PO SCH (10:01)
[2018-10-20] MEDS: NYSTATIN POWDER 15GM TOP SCH (10:03)
[2018-10-20] MEDS: FLUCONAZOLE 100MG TABLET PO SCH (10:07)
[2018-10-20] MEDS: INSULIN GLARGINE UD 100 UNITS/ML SYR SUBCUT SCH (10:08)
[2018-10-20 12:26] VITALS: BP 106/63
[2018-10-20 16:57] LABS: PLATELET ESTIMATE NORMAL
== END 2018-10-20 13:10 | disposition short-term general hospital (02) | DRG 947 ==
PROVIDERS: ADMIT Physical Medicine & Rehabilitation Spinal Cord Injury Medicine; ATTEND Internal Medicine
DX: R53.81 Other malaise (principal); A41.9 Sepsis, unspecified organism; E43 Unspecified severe protein-calorie malnutrition; R65.21 Severe sepsis with septic shock; E27.40 Unspecified adrenocortical insufficiency; E87.2 Acidosis; N17.9 Acute kidney failure, unspecified; N39.0 Urinary tract infection, site not specified; Z68.42 Body mass index [BMI] 45.0-49.9, adult; E87.0 Hyperosmolality and hypernatremia; D63.8 Anemia in other chronic diseases classified elsewhere; D75.89 Other specified diseases of blood and blood-forming organs; E11.22 Type 2 diabetes mellitus with diabetic chronic kidney disease; E11.51 Type 2 diabetes mellitus with diabetic peripheral angiopathy without gangrene; I13.10 Hypertensive heart and chronic kidney disease without heart failure, with stage 1 through stage 4 chronic kidney disease, or unspecified chronic kidney disease; E66.01 Morbid (severe) obesity due to excess calories; E78.00 Pure hypercholesterolemia, unspecified; E83.51 Hypocalcemia; M17.0 Bilateral primary osteoarthritis of knee; E87.6 Hypokalemia; K76.0 Fatty (change of) liver, not elsewhere classified; N18.9 Chronic kidney disease, unspecified; R55 Syncope and collapse; R94.6 Abnormal results of thyroid function studies; E83.42 Hypomagnesemia; E87.70 Fluid overload, unspecified; S90.822A Blister (nonthermal), left foot, initial encounter; W18.39XA Other fall on same level, initial encounter; R26.2 Difficulty in walking, not elsewhere classified; K52.9 Noninfective gastroenteritis and colitis, unspecified; D25.9 Leiomyoma of uterus, unspecified; F41.9 Anxiety disorder, unspecified; F32.9 Major depressive disorder, single episode, unspecified; F06.31 Mood disorder due to known physiological condition with depressive features; F06.8 Other specified mental disorders due to known physiological condition; L97.529 Non-pressure chronic ulcer of other part of left foot with unspecified severity; I89.0 Lymphedema, not elsewhere classified; E11.621 Type 2 diabetes mellitus with foot ulcer; E83.39 Other disorders of phosphorus metabolism; K59.00 Constipation, unspecified; Z79.4 Long term (current) use of insulin; Z80.0 Family history of malignant neoplasm of digestive organs; Z80.6 Family history of leukemia; Z82.49 Family history of ischemic heart disease and other diseases of the circulatory system; Z87.891 Personal history of nicotine dependence; Y93.89 Activity, other specified; Y92.89 Other specified places as the place of occurrence of the external cause; Y99.8 Other external cause status; Z79.899 Other long term (current) drug therapy
CPT/HCPCS: 36415; 71045; 73721; 80048; 82024; 82088; 82306; 82533; 82550; 82728; 82962; 83540; 83550; 83735; 84100; 84134; 84439; 84443; 84481; 86376; 86705; 86709; 86803; 87340; 93923; 93970; 97110; 97116; 97162; 97167; 97530; 97535; A6261; J0696; J0834; J1720; J1815; J1940; J3475; J7040; J7070; Q0162; Q0163

== ENCOUNTER 2018-10-20 13:00 | Inpatient (IN) | payer MEDICARE, MEDICAID ==
[~2018-10-20] VITALS: Ht 165.1 cm; Wt 110.2 kg
[2018-10-20 14:00] VITALS: BP 149/68
[2018-10-20 16:00] VITALS: BP 120/72
[2018-10-20] MEDS ORDERED: DEXTROSE 50% WATER 50ML SYRINGE IV PRN (16:30)
[2018-10-20] MEDS ORDERED: NITROGLYCERIN 0.4MG TABLET SL SL PRN (17:00)
[2018-10-20] MEDS ORDERED: ACETAMINOPHEN 325MG TABLET PO PRN (17:00)
[2018-10-20] MEDS ORDERED: LOPERAMIDE HCL 2MG CAPSULE PO PRN (17:00)
[2018-10-20] MEDS ORDERED: MAGNESIUM/ALUMINUM HYDROXIDE/SIMETHICONE 30ML UDC PO PRN (17:00)
[2018-10-20] MEDS ORDERED: GUAIFENESIN 200MG/10ML SUGAR FREE UDC PO PRN (17:00)
[2018-10-20] MEDS ORDERED: FUROSEMIDE 40MG/4ML VIAL IVP ONE (17:00)
[2018-10-20] MEDS: FUROSEMIDE 40MG/4ML VIAL IVP SCH (18:30)
[2018-10-20] MEDS: HYDROCODONE/ACETAMINOPHEN 10/325MG TABLET PO PRN (18:35)
[2018-10-20] MEDS: FLUCONAZOLE 100MG TABLET PO SCH (18:40)
[2018-10-20] MEDS: DOCUSATE SODIUM 100MG CAPSULE PO SCH (18:40)
[2018-10-20 18:46] VITALS: BP 144/65
[2018-10-20 20:00] VITALS: BP 100/67
[2018-10-20] MEDS: ASCORBIC ACID 500 MG TABLET PO SCH (20:32)
[2018-10-20] MEDS: MAGNESIUM OXIDE 400MG TABLET PO SCH (20:32)
[2018-10-20] MEDS: BLOOD SUGAR DIAGNOSTIC STRIP TEST SCH (20:32)
[2018-10-20] MEDS: DIPHENHYDRAMINE 25MG CAPSULE PO PRN (20:34)
[2018-10-20] MEDS: INSULIN LISPRO 100 UNITS/ML SUBCUT SCH (20:59)
[2018-10-21] VITALS (11 sets, daily range): BP systolic 96–111; BP diastolic 56–69
[2018-10-21] MEDS: ALPRAZOLAM 0.5 MG TABLET PO PRN ×2 (02:15→22:02)
[2018-10-21] MEDS: FUROSEMIDE 40MG/4ML VIAL IVP SCH ×2 (06:39→19:14)
[2018-10-21] MEDS: BLOOD SUGAR DIAGNOSTIC STRIP TEST SCH ×4 (06:45→21:53)
[2018-10-21] MEDS: INSULIN LISPRO 100 UNITS/ML SUBCUT SCH ×4 (07:15→21:00)
[2018-10-21 07:27] LABS: BASOPHILS % 0.6 % (0.0-2.0); EOSINOPHILS % 1.9 % (0.0-5.0); HEMATOCRIT. 25.5 % (36.0-48.0); HEMOGLOBIN. 8.3 g/dL (12.0-16.0); MEAN CORPUSCULAR HEMOGLOBIN 33.3 pg (28.0-32.0); MEAN CORPUSCULAR VOLUME 102.1 fL (81.0-99.0); MEAN PLATELET VOLUME 9.4 fl (7.4-10.4); MONOCYTES % 12.1 % (2.0-8.0); NEUTROPHILS % 42.4 % (40.0-76.0); PLATELET 287 x1000/uL (130-400)
[2018-10-21 07:55] LABS: CHLORIDE 112 mEq/L (98-107)
[2018-10-21 08:17] LABS: PHOSPHORUS 4.3 mg/dL (2.5-4.9)
[2018-10-21] MEDS: DOCUSATE SODIUM 100MG CAPSULE PO SCH ×2 (08:33→16:32)
[2018-10-21] MEDS: ASCORBIC ACID 500 MG TABLET PO SCH ×2 (08:33→20:22)
[2018-10-21] MEDS: POTASSIUM CHLORIDE 20MEQ TABLET SR PO SCH (08:33)
[2018-10-21] MEDS: NYSTATIN POWDER 15GM TOP SCH ×6 (08:33→21:55)
[2018-10-21] MEDS: MAGNESIUM OXIDE 400MG TABLET PO SCH ×2 (08:34→20:22)
[2018-10-21] MEDS: ZINC SULFATE 220 MG ( 50 ) CAPSULE PO SCH (08:34)
[2018-10-21] MEDS: FLUCONAZOLE 100MG TABLET PO SCH (08:34)
[2018-10-21] MEDS: FAMOTIDINE 20MG TABLET PO SCH (08:34)
[2018-10-21] MEDS: HYDROCODONE/ACETAMINOPHEN 10/325MG TABLET PO PRN ×3 (08:38→20:22)
[2018-10-21] MEDS ORDERED: POTASSIUM CHLORIDE 20MEQ TABLET SR PO SCH (09:00)
[2018-10-21 09:51] LABS: BASOPHILS % 0.7 % (0.0-2.0); EOSINOPHILS % 2.3 % (0.0-5.0); HEMATOCRIT. 25.9 % (36.0-48.0); HEMOGLOBIN. 8.3 g/dL (12.0-16.0); LYMPHOCYTES % 39.7 % (20.0-50.0); MEAN CORPUSCULAR HEMOGLOBIN 32.9 pg (28.0-32.0); MEAN CORPUSCULAR VOLUME 102.6 fL (81.0-99.0); MEAN PLATELET VOLUME 9.7 fl (7.4-10.4); MONOCYTES % 11.7 % (2.0-8.0); NEUTROPHILS % 45.6 % (40.0-76.0); PLATELET 302 x1000/uL (130-400); RED BLOOD CELL COUNT 2.53 mill/uL (4.2-5.4); RED CELL DISTRIBUTION WIDTH 17.7 % (11.6-14.6)
[2018-10-21 09:58] LABS: INR 1.1; PROTHROMBIN TIME 11.5 sec (9.1-11.1)
[2018-10-21] MEDS ORDERED: FUROSEMIDE 40MG/4ML VIAL IVP NR (11:30)
[2018-10-21] MEDS: INSULIN GLARGINE UD 100 UNITS/ML SYR SUBCUT SCH (11:49)
[2018-10-22 00:05] VITALS: BP 108/64
[2018-10-22 04:00] VITALS: BP 123/81
[2018-10-22] MEDS: HYDROCODONE/ACETAMINOPHEN 10/325MG TABLET PO PRN ×4 (04:12→21:10)
[2018-10-22] MEDS: NYSTATIN POWDER 15GM TOP SCH ×7 (06:43→23:35)
[2018-10-22] MEDS: FUROSEMIDE 40MG/4ML VIAL IVP SCH ×2 (06:43→17:28)
[2018-10-22] MEDS: BLOOD SUGAR DIAGNOSTIC STRIP TEST SCH ×4 (07:07→21:15)
[2018-10-22] MEDS: INSULIN LISPRO 100 UNITS/ML SUBCUT SCH ×4 (07:08→21:00)
[2018-10-22 07:33] LABS: BASOPHILS % 0.6 % (0.0-2.0); EOSINOPHILS % 2.4 % (0.0-5.0); HEMATOCRIT. 26.8 % (36.0-48.0); HEMOGLOBIN. 8.5 g/dL (12.0-16.0); LYMPHOCYTES % 40.7 % (20.0-50.0); MEAN CORPUSCULAR HEMOGLOBIN 32.6 pg (28.0-32.0); MEAN CORPUSCULAR VOLUME 103.2 fL (81.0-99.0); MEAN PLATELET VOLUME 9.5 fl (7.4-10.4); MONOCYTES % 11.1 % (2.0-8.0); NEUTROPHILS % 45.2 % (40.0-76.0); PLATELET 299 x1000/uL (130-400); RED CELL DISTRIBUTION WIDTH 17.6 % (11.6-14.6)
[2018-10-22 07:35] LABS: CHLORIDE 111 mEq/L (98-107)
[2018-10-22 07:41] LABS: PHOSPHORUS 4.5 mg/dL (2.5-4.9)
[2018-10-22 08:00] VITALS: BP 108/75
[2018-10-22] MEDS: POTASSIUM CHLORIDE 20MEQ TABLET SR PO SCH (09:16)
[2018-10-22] MEDS: MAGNESIUM OXIDE 400MG TABLET PO SCH ×2 (09:16→21:09)
[2018-10-22] MEDS: FLUCONAZOLE 100MG TABLET PO SCH (09:16)
[2018-10-22] MEDS: ZINC SULFATE 220 MG ( 50 ) CAPSULE PO SCH (09:17)
[2018-10-22] MEDS: FAMOTIDINE 20MG TABLET PO SCH (09:17)
[2018-10-22] MEDS: ASCORBIC ACID 500 MG TABLET PO SCH ×2 (09:17→21:09)
[2018-10-22] MEDS: DOCUSATE SODIUM 100MG CAPSULE PO SCH ×2 (09:17→17:27)
[2018-10-22] MEDS ORDERED: MAGNESIUM 2 G PREMIX 50 ML IV SCH (10:00)
[2018-10-22] MEDS: INSULIN GLARGINE UD 100 UNITS/ML SYR SUBCUT SCH (10:19)
[2018-10-22 12:00] VITALS: BP 119/79
[2018-10-22] MEDS ORDERED: PIPERACILLIN/TAZ 2.25G PREMIX 50 ML IV SCH (12:15)
[2018-10-22] MEDS ORDERED: PIPERACILLIN/TAZ 3.375G PREMIX 50 ML IV SCH (13:30)
[2018-10-22] MEDS ORDERED: VANCOMYCIN 2,000 MG in DEXT 5% WATER 500 ML IV SCH (14:00)
[2018-10-22 16:00] VITALS: BP 137/81
[2018-10-22] MEDS ORDERED: CEFTRIAXONE 1 G PREMIX 50 ML IV SCH (16:00)
[2018-10-22] MEDS: DIPHENHYDRAMINE 25MG CAPSULE PO PRN (17:27)
[2018-10-22 20:00] VITALS: BP 107/62
[2018-10-22] MEDS: ALPRAZOLAM 0.5 MG TABLET PO PRN (23:34)
[2018-10-23] VITALS: BP 102/64
[2018-10-23] MEDS: HYDROCODONE/ACETAMINOPHEN 10/325MG TABLET PO PRN ×4 (03:45→21:02)
[2018-10-23 04:00] VITALS: BP 124/75
[2018-10-23] MEDS ORDERED: VANCOMYCIN 1 G PREMIX 200 ML IV SCH (06:00)
[2018-10-23] MEDS: INSULIN LISPRO 100 UNITS/ML SUBCUT SCH ×5 (06:04→21:25)
[2018-10-23] MEDS: BLOOD SUGAR DIAGNOSTIC STRIP TEST SCH ×4 (06:04→21:03)
[2018-10-23] MEDS: NYSTATIN POWDER 15GM TOP SCH ×6 (06:18→22:22)
[2018-10-23 06:38] LABS: BASOPHILS % 0.3 % (0.0-2.0); EOSINOPHILS % 1.6 % (0.0-5.0); HEMATOCRIT. 28.2 % (36.0-48.0); HEMOGLOBIN. 9.1 g/dL (12.0-16.0); MEAN CORPUSCULAR HEMOGLOBIN 32.9 pg (28.0-32.0); MEAN CORPUSCULAR VOLUME 102.4 fL (81.0-99.0); MEAN PLATELET VOLUME 9.6 fl (7.4-10.4); MONOCYTES % 9.8 % (2.0-8.0); NEUTROPHILS % 47.3 % (40.0-76.0); PLATELET 345 x1000/uL (130-400); RED BLOOD CELL COUNT 2.76 mill/uL (4.2-5.4); RED CELL DISTRIBUTION WIDTH 16.7 % (11.6-14.6)
[2018-10-23 08:00] VITALS: BP 110/51
[2018-10-23 08:05] LABS: CHLORIDE 106 mEq/L (98-107)
[2018-10-23 08:17] LABS: PHOSPHORUS 4.6 mg/dL (2.5-4.9)
[2018-10-23] MEDS: FUROSEMIDE 40MG/4ML VIAL IVP SCH ×2 (08:41→17:01)
[2018-10-23] MEDS: ASCORBIC ACID 500 MG TABLET PO SCH ×2 (08:42→21:03)
[2018-10-23] MEDS: MAGNESIUM OXIDE 400MG TABLET PO SCH ×2 (08:42→21:03)
[2018-10-23] MEDS: DOCUSATE SODIUM 100MG CAPSULE PO SCH ×2 (08:42→17:01)
[2018-10-23] MEDS: ZINC SULFATE 220 MG ( 50 ) CAPSULE PO SCH (08:42)
[2018-10-23] MEDS: FLUCONAZOLE 100MG TABLET PO SCH (08:43)
[2018-10-23] MEDS: POTASSIUM CHLORIDE 20MEQ TABLET SR PO SCH (08:43)
[2018-10-23] MEDS: FAMOTIDINE 20MG TABLET PO SCH (08:43)
[2018-10-23] MEDS: INSULIN GLARGINE UD 100 UNITS/ML SYR SUBCUT SCH (10:22)
[2018-10-23 11:44] VITALS: BP 108/65
[2018-10-23 16:00] VITALS: BP 118/69
[2018-10-23] MEDS: CEFTRIAXONE 1 G PREMIX 50 ML IV SCH (17:01)
[2018-10-23 20:00] VITALS: BP 97/61
[2018-10-23] MEDS: VANCOMYCIN 1 G PREMIX 200 ML IV SCH (21:02)
[2018-10-24] VITALS: BP 110/88
[2018-10-24] MEDS: DIPHENHYDRAMINE 25MG CAPSULE PO PRN ×2 (00:41→21:59)
[2018-10-24] MEDS: ALPRAZOLAM 0.5 MG TABLET PO PRN (00:41)
[2018-10-24 04:00] VITALS: BP 99/52
[2018-10-24] MEDS: HYDROCODONE/ACETAMINOPHEN 10/325MG TABLET PO PRN ×4 (05:46→20:46)
[2018-10-24] MEDS: BLOOD SUGAR DIAGNOSTIC STRIP TEST SCH ×4 (06:26→21:59)
[2018-10-24] MEDS: INSULIN LISPRO 100 UNITS/ML SUBCUT SCH ×4 (06:27→21:58)
[2018-10-24] MEDS: FUROSEMIDE 40MG/4ML VIAL IVP SCH ×2 (06:53→17:29)
[2018-10-24] MEDS: NYSTATIN POWDER 15GM TOP SCH ×6 (06:53→22:18)
[2018-10-24 07:35] LABS: BASOPHILS % 0.5 % (0.0-2.0); EOSINOPHILS % 1.7 % (0.0-5.0); HEMATOCRIT. 27.1 % (36.0-48.0); HEMOGLOBIN. 8.6 g/dL (12.0-16.0); LYMPHOCYTES % 41.8 % (20.0-50.0); MEAN CORPUSCULAR HEMOGLOBIN 32.8 pg (28.0-32.0); MEAN CORPUSCULAR VOLUME 102.7 fL (81.0-99.0); MEAN PLATELET VOLUME 9.7 fl (7.4-10.4); PLATELET 310 x1000/uL (130-400); RED BLOOD CELL COUNT 2.64 mill/uL (4.2-5.4); RED CELL DISTRIBUTION WIDTH 16.7 % (11.6-14.6)
[2018-10-24 08:00] VITALS: BP 124/64
[2018-10-24 08:02] LABS: CHLORIDE 108 mEq/L (98-107)
[2018-10-24 08:26] LABS: PHOSPHORUS 4.7 mg/dL (2.5-4.9)
[2018-10-24] MEDS: VANCOMYCIN 1 G PREMIX 200 ML IV SCH ×2 (09:32→21:59)
[2018-10-24] MEDS: POTASSIUM CHLORIDE 20MEQ TABLET SR PO SCH (09:32)
[2018-10-24] MEDS: MAGNESIUM OXIDE 400MG TABLET PO SCH ×2 (09:33→21:59)
[2018-10-24] MEDS: ASCORBIC ACID 500 MG TABLET PO SCH ×2 (09:33→21:59)
[2018-10-24] MEDS: ZINC SULFATE 220 MG ( 50 ) CAPSULE PO SCH (09:33)
[2018-10-24] MEDS: DOCUSATE SODIUM 100MG CAPSULE PO SCH ×2 (09:33→17:00)
[2018-10-24] MEDS: FLUCONAZOLE 100MG TABLET PO SCH (09:33)
[2018-10-24] MEDS: FAMOTIDINE 20MG TABLET PO SCH (09:33)
[2018-10-24] MEDS: INSULIN GLARGINE UD 100 UNITS/ML SYR SUBCUT SCH (10:50)
[2018-10-24 12:00] VITALS: BP 122/71
[2018-10-24] MEDS: SILVER SULFADIAZINE 1% CREAM 50GM TOP SCH (15:43)
[2018-10-24 16:00] VITALS: BP 120/72
[2018-10-24] MEDS: CEFTRIAXONE 1 G PREMIX 50 ML IV SCH (17:30)
[2018-10-24 20:00] VITALS: BP 104/70
[2018-10-25] VITALS: BP 98/57
[2018-10-25] MEDS: HYDROCODONE/ACETAMINOPHEN 10/325MG TABLET PO PRN ×5 (02:49→22:22)
[2018-10-25 04:00] VITALS: BP 110/70
[2018-10-25] MEDS: NYSTATIN POWDER 15GM TOP SCH ×6 (06:22→22:00)
[2018-10-25] MEDS: BLOOD SUGAR DIAGNOSTIC STRIP TEST SCH ×4 (06:22→21:07)
[2018-10-25] MEDS: INSULIN LISPRO 100 UNITS/ML SUBCUT SCH ×4 (06:23→21:17)
[2018-10-25] MEDS: FUROSEMIDE 40MG/4ML VIAL IVP SCH ×2 (06:23→18:07)
[2018-10-25 08:01] LABS: BASOPHILS % 0.9 % (0.0-2.0); EOSINOPHILS % 2.2 % (0.0-5.0); HEMATOCRIT. 28.7 % (36.0-48.0); HEMOGLOBIN. 9.2 g/dL (12.0-16.0); LYMPHOCYTES % 41.4 % (20.0-50.0); MEAN CORPUSCULAR HEMOGLOBIN 32.7 pg (28.0-32.0); MEAN CORPUSCULAR VOLUME 102.7 fL (81.0-99.0); MEAN PLATELET VOLUME 10.1 fl (7.4-10.4); MONOCYTES % 9.8 % (2.0-8.0); NEUTROPHILS % 45.7 % (40.0-76.0); PLATELET 304 x1000/uL (130-400); RED CELL DISTRIBUTION WIDTH 16.2 % (11.6-14.6)
[2018-10-25 08:10] VITALS: BP 103/74
[2018-10-25 08:24] LABS: CHLORIDE 107 mEq/L (98-107)
[2018-10-25 08:32] LABS: PHOSPHORUS 4.3 mg/dL (2.5-4.9)
[2018-10-25] MEDS: DOCUSATE SODIUM 100MG CAPSULE PO SCH ×2 (09:16→18:07)
[2018-10-25] MEDS: VANCOMYCIN 1 G PREMIX 200 ML IV SCH ×2 (09:16→20:20)
[2018-10-25] MEDS: FAMOTIDINE 20MG TABLET PO SCH (09:16)
[2018-10-25] MEDS: POTASSIUM CHLORIDE 20MEQ TABLET SR PO SCH (09:16)
[2018-10-25] MEDS: ZINC SULFATE 220 MG ( 50 ) CAPSULE PO SCH (09:17)
[2018-10-25] MEDS: ASCORBIC ACID 500 MG TABLET PO SCH ×2 (09:17→21:06)
[2018-10-25] MEDS: MAGNESIUM OXIDE 400MG TABLET PO SCH ×2 (09:17→23:04)
[2018-10-25] MEDS: FLUCONAZOLE 100MG TABLET PO SCH (09:17)
[2018-10-25] MEDS: INSULIN GLARGINE UD 100 UNITS/ML SYR SUBCUT SCH (09:18)
[2018-10-25] MEDS: SILVER SULFADIAZINE 1% CREAM 50GM TOP SCH (09:18)
[2018-10-25] MEDS: DIPHENHYDRAMINE 25MG CAPSULE PO PRN (09:32)
[2018-10-25 12:00] VITALS: BP 101/63
[2018-10-25 16:00] VITALS: BP 112/68
[2018-10-25] MEDS ORDERED: MAGNESIUM 2 G PREMIX 50 ML IV SCH (18:00)
[2018-10-25] MEDS: CEFTRIAXONE 1 G PREMIX 50 ML IV SCH (18:08)
[2018-10-25 20:00] VITALS: BP 110/72
[2018-10-25 23:57] LABS: CLARITY URINE CLEAR (CLEAR); COLOR URINE YELLOW (YELLOW); KETONES URINE NEGATIVE (NEGATIVE); LEUKOCYTE ESTERASE URINE NEGATIVE (NEGATIVE); NITRITE URINE NEGATIVE (NEGATIVE); OCCULT BLOOD URINE NEGATIVE (NEGATIVE); PROTEIN URINE NEGATIVE (NEGATIVE); SPECIFIC GRAVITY URINE 1.023 (1.005-1.030); UROBILINOGEN URINE 0.2 E.U./dL (0.2-1.0)
[2018-10-26] VITALS: BP 100/53
[2018-10-26] MEDS: DIPHENHYDRAMINE 25MG CAPSULE PO PRN ×3 (00:52→23:01)
[2018-10-26] MEDS: HYDROCODONE/ACETAMINOPHEN 10/325MG TABLET PO PRN ×5 (03:28→21:29)
[2018-10-26 04:00] VITALS: BP 93/54
[2018-10-26] MEDS: NYSTATIN POWDER 15GM TOP SCH ×7 (06:00→23:04)
[2018-10-26] MEDS: INSULIN LISPRO 100 UNITS/ML SUBCUT SCH ×4 (06:22→21:36)
[2018-10-26] MEDS: BLOOD SUGAR DIAGNOSTIC STRIP TEST SCH ×4 (06:22→21:29)
[2018-10-26 07:29] LABS: HEMATOCRIT. 28.5 % (36.0-48.0); HEMOGLOBIN. 9.2 g/dL (12.0-16.0); MEAN CORPUSCULAR HEMOGLOBIN 32.9 pg (28.0-32.0); MEAN CORPUSCULAR VOLUME 102.2 fL (81.0-99.0); MEAN PLATELET VOLUME 9.9 fl (7.4-10.4); PLATELET 331 x1000/uL (130-400); RED BLOOD CELL COUNT 2.78 mill/uL (4.2-5.4)
[2018-10-26 07:41] LABS: CHLORIDE 106 mEq/L (98-107)
[2018-10-26] MEDS: VANCOMYCIN 1 G PREMIX 200 ML IV SCH ×2 (07:43→20:05)
[2018-10-26] MEDS: FUROSEMIDE 40MG/4ML VIAL IVP SCH ×2 (07:43→17:17)
[2018-10-26 07:48] LABS: PHOSPHORUS 4.4 mg/dL (2.5-4.9)
[2018-10-26 08:01] VITALS: BP 111/75
[2018-10-26] MEDS: FLUCONAZOLE 100MG TABLET PO SCH (08:51)
[2018-10-26] MEDS: FAMOTIDINE 20MG TABLET PO SCH (08:51)
[2018-10-26] MEDS: POTASSIUM CHLORIDE 20MEQ TABLET SR PO SCH (08:51)
[2018-10-26] MEDS: DOCUSATE SODIUM 100MG CAPSULE PO SCH ×2 (08:52→17:17)
[2018-10-26] MEDS: ZINC SULFATE 220 MG ( 50 ) CAPSULE PO SCH (08:52)
[2018-10-26] MEDS: ASCORBIC ACID 500 MG TABLET PO SCH ×2 (08:52→21:28)
[2018-10-26] MEDS: SILVER SULFADIAZINE 1% CREAM 50GM TOP SCH (09:06)
[2018-10-26] MEDS: INSULIN GLARGINE UD 100 UNITS/ML SYR SUBCUT SCH (09:06)
[2018-10-26] MEDS: MAGNESIUM OXIDE 400MG TABLET PO SCH ×2 (10:11→21:28)
[2018-10-26 12:00] VITALS: BP 103/61
[2018-10-26 12:40] LABS: PLATELET ESTIMATE NORMAL
[2018-10-26 16:00] VITALS: BP 120/70
[2018-10-26] MEDS: CEFTRIAXONE 1 G PREMIX 50 ML IV SCH (17:13)
[2018-10-26 20:00] VITALS: BP 127/68
[2018-10-26] MEDS ORDERED: ALPRAZOLAM 0.5 MG TABLET PO PRN (23:15)
[2018-10-27] VITALS: BP 133/79
[2018-10-27 04:00] VITALS: BP 100/67
[2018-10-27] MEDS: NYSTATIN POWDER 15GM TOP SCH ×2 (04:45→09:11)
[2018-10-27] MEDS: BLOOD SUGAR DIAGNOSTIC STRIP TEST SCH ×2 (06:01→12:44)
[2018-10-27] MEDS: INSULIN LISPRO 100 UNITS/ML SUBCUT SCH ×2 (06:01→12:52)
[2018-10-27] MEDS: HYDROCODONE/ACETAMINOPHEN 10/325MG TABLET PO PRN ×2 (06:46→12:20)
[2018-10-27 07:59] LABS: HEMATOCRIT. 27.9 % (36.0-48.0); MEAN CORPUSCULAR HEMOGLOBIN 32.9 pg (28.0-32.0); MEAN CORPUSCULAR VOLUME 102.3 fL (81.0-99.0); MEAN PLATELET VOLUME 9.8 fl (7.4-10.4); PLATELET 324 x1000/uL (130-400); RED BLOOD CELL COUNT 2.73 mill/uL (4.2-5.4); RED CELL DISTRIBUTION WIDTH 15.7 % (11.6-14.6)
[2018-10-27 08:00] VITALS: BP 95/53
[2018-10-27] MEDS: VANCOMYCIN 1 G PREMIX 200 ML IV SCH (08:35)
[2018-10-27] MEDS: FUROSEMIDE 40MG/4ML VIAL IVP SCH (08:35)
[2018-10-27 08:43] LABS: CHLORIDE 105 mEq/L (98-107)
[2018-10-27 08:49] LABS: PHOSPHORUS 4.7 mg/dL (2.5-4.9)
[2018-10-27] MEDS: DOCUSATE SODIUM 100MG CAPSULE PO SCH (09:11)
[2018-10-27] MEDS: POTASSIUM CHLORIDE 20MEQ TABLET SR PO SCH (09:11)
[2018-10-27] MEDS: SILVER SULFADIAZINE 1% CREAM 50GM TOP SCH (09:11)
[2018-10-27] MEDS: ASCORBIC ACID 500 MG TABLET PO SCH (09:12)
[2018-10-27] MEDS: ZINC SULFATE 220 MG ( 50 ) CAPSULE PO SCH (09:12)
[2018-10-27] MEDS: MAGNESIUM OXIDE 400MG TABLET PO SCH (09:12)
[2018-10-27] MEDS: FLUCONAZOLE 100MG TABLET PO SCH (09:12)
[2018-10-27] MEDS: FAMOTIDINE 20MG TABLET PO SCH (09:12)
[2018-10-27] MEDS: DIPHENHYDRAMINE 25MG CAPSULE PO PRN (09:30)
[2018-10-27] MEDS: INSULIN GLARGINE UD 100 UNITS/ML SYR SUBCUT SCH (11:45)
[2018-10-27 12:00] VITALS: BP 121/79
[2018-10-27 13:50] VITALS: BP 121/79
[2018-10-27 16:48] LABS: PLATELET ESTIMATE NORMAL
== END 2018-10-27 14:15 | DRG 871 ==
LOC: 5WST 13:00
PROVIDERS: ADMIT Internal Medicine; ATTEND Internal Medicine
PROC: 30233N1 Transfusion of Nonautologous Red Blood Cells into Peripheral Vein, Percutaneous Approach (ICD-10-PCS; principal; 2018-10-21)
DX: A41.9 Sepsis, unspecified organism (principal); R65.21 Severe sepsis with septic shock; N39.0 Urinary tract infection, site not specified; E87.0 Hyperosmolality and hypernatremia; N17.9 Acute kidney failure, unspecified; Z68.41 Body mass index [BMI] 40.0-44.9, adult; E66.01 Morbid (severe) obesity due to excess calories; I10 Essential (primary) hypertension; G89.4 Chronic pain syndrome; E83.42 Hypomagnesemia; E87.6 Hypokalemia; E87.70 Fluid overload, unspecified; D64.9 Anemia, unspecified; F19.10 Other psychoactive substance abuse, uncomplicated; E83.39 Other disorders of phosphorus metabolism; K52.9 Noninfective gastroenteritis and colitis, unspecified; K76.0 Fatty (change of) liver, not elsewhere classified; L97.529 Non-pressure chronic ulcer of other part of left foot with unspecified severity; M17.0 Bilateral primary osteoarthritis of knee; Z79.4 Long term (current) use of insulin; Z82.49 Family history of ischemic heart disease and other diseases of the circulatory system; Z87.891 Personal history of nicotine dependence
CPT/HCPCS: 36415; 80048; 80202; 82570; 82962; 83735; 84100; 84134; 84156; 85384; 86850; 86900; 86920; 87070; 87077; 97162; J0696; J1815; J1940; J2543; J3370; J3475; J7040; J7050; J7060; P9016; Q0163